=== PATIENT | male | born 1955 | race Asian ===

== ENCOUNTER 2023-11-16 12:03 | Inpatient (IN) | payer BC, MEDICARE, SELFPAY ==
[2023-11-16] VITALS (14 sets, daily range): BP systolic 87–149; BP diastolic 82–97; BMI 24.4; BMI 23.0
--- NOTE | 2023-11-16 08:26 | ED.GENMED ---
History of Present Illness
General
Chief Complaint: Breathing Problem
Source: patient
Exam Limitations: none
Time Seen by Provider: 11/16/23 08:14
History of Present Illness
History of Present Illness:
See MDM
Past History
Past History
ED Past Medical History: Hypercholesterolemia and NIDDM
ED Past Surgical History: Orthopedic
Social History
Tobacco: Former smoker
Alcohol: Occasional
Drug: None
Personal:
Living: with family
Family History
Family History: Other (Mother with liver cancer. Father with Alzheimer's)
Phy Exam
Physical Exam
Physical Exam:
See MDM
Scores
Heart Failure Risk
Heart Failure Risk Score: Yes
History of Stroke or TIA: No
History of intubation for respiratory distress: No
Heart rate on ED arrival >/= 110: No
SaO2 <90% on arrival on room air: No
HR >/=110 during 3min walk test (or too ill to perform test): No
ECG has acute ischemic changes: No
Urea >/=12mmol/L (BUN 33.6mg/dL): No
Serum CO2>/=35mmol/L: No
Troponin I or T elevated to CT Level (0.4mg/dL): No
NT-proBNP >/=5,000ng/L (5,000pg/ml): No
HF Risk Score: 0
Admission Status: LOW RISK 2.8% Consider discharge to home with f/u visit to PCP/[facility]
Course
Orders/Labs/Results
Orders:
Orders
11/16/23 07:21
Electrocardiogram (*1) Urgent
Reason for Study: Palpitations
EKG- Treatment ONCE
11/16/23 08:25
CR Chest - 2 Views Urgent
Comment:
Reason For Exam: SOB
11/16/23 08:53
Basic Metabolic Panel Urgent
Complete Blood Count/With Diff Urgent
NT-proBNP Urgent
PTT Urgent
Prothrombin Time Urgent
Troponin I Urgent
11/16/23 09:08
Potassium Urgent
Abnormal Lab Results
11/16/23
08:53
Absolute Lymphs (auto) 0.7 L 10^3/uL
(1.2-3.4)
Neutrophils % 76.7 H %
(42.2-75.2)
Lymphocytes % 11.0 L %
(20.5-51.1)
Creatinine 0.6 L mg/dL
(0.7-1.3)
Glucose 129 H mg/dl
(70-99)
11/16/23 08:53
Vital Signs
Initial and Last Documented VS:
Initial Vital Signs
Temp Pulse Resp BP Pulse Ox
98.7 F 99 18 149/97 94
11/16/23 07:19 11/16/23 07:19 11/16/23 07:19 11/16/23 07:19 11/16/23 07:19
Last Documented Vital Signs
Temp Pulse Resp BP Pulse Ox
98.7 F 92 18 137/89 96
11/16/23 07:19 11/16/23 09:00 11/16/23 09:00 11/16/23 08:44 11/16/23 09:00
MDM/Problems Addressed
Differential Diagnosis Includes:
HPI and MDM Narrative:
68-year-old male presenting with several days of shortness of breath. He has described exercise intolerance over the past few days. He describes his shortness of breath in regards to nonproductive cough and unable to get deep breaths. Symptoms do
appear to be worse at nighttime when he lays flat. He denies leg swelling. He denies chest pain. Patient states that he followed up with cardiology and was told to go to the hospital.
On exam, patient does have decreased breath sounds on the right. Given his history, will obtain troponin to rule out NSTEMI. Will obtain chest x-ray to look for evidence of right-sided pleural effusion and will obtain BNP with concerns for
pulmonary edema versus heart failure.
Physical exam
General: Well appearing and non-toxic
HEENT: protecting airway
Neck: appears supple
CV: No evidence of cyanosis. Regular rate and rhythm
Resp: No accessory muscle use. Decreased breath sounds to the right
Abd: Non-distended
Extremities: No deformities. No leg edema or tenderness
Neuro: alert
Psych: Normal affect
Skin: Intact
Problems Addressed including Acute and Chronic Conditions affecting care:
1. Shortness of breath
Acuity: acute
Prognosis: stable
Details: Given his history, concern for pleural effusion versus NSTEMI versus pulm edema. Will obtain troponin, BNP and chest x-ray
Updates
Chest x-ray shows complete opacification of right lung field. Troponin and BNP negative. Given that he is not in any extremis and does not require any supplemental oxygen, will refrain from Lasix at the moment. Patient will likely need
thoracentesis for possible neoplasm workup
Differential Diagnosis (but not limited to): Pneumonia, pleural effusion, NSTEMI, congestive heart failure
Testing considered: D-dimer
Drug therapy (if applicable): OTC meds, please see d/c instruction regarding Rx drugs
Amount and/or Complexity of Data Reviewed
Clinical info obtained from: Patient
External data reviewed: N/A
Labs I independently reviewed (but not limited to): Troponin and BNP negative
Radiology: X-ray independently reviewed: Chest x-ray shows complete opacification of right lung field
Pulse Ox: not hypoxic
EKG independently reviewed: Sinus rhythm, left axis, no STEMI
Utility Worker Production: Sinus rhythm
Critical Care: N/A
Risk of Complication:
Social Determinants of health: Good social support
Discussed with other providers: Hospitalist
Escalation of Care includes Admit/Obs: Given the complete opacification of the right lung field, will admit for further workup
Occasional wrong word or 'sound a like' substitutions may have occurred due to the inherent limitations of voice recognition software. Read the chart carefully and recognize, using context, where substitutions have occurred.
*Critical Care Note
Total Time (30-74mins, 75-104mins- exclusive of procedures): Not Applicable
ED Attending Note
-
Portions of this chart may have been created with voice recognition software.� Occasional wrong word or��sound alike� substitutions may have occurred due to the inherent limitations of voice recognition software.
Discharge Plan
Departure
Patient Disposition: Admit
Date of Disposition: 11/16/23
Time of Disposition: 09:32
Admit to: Med/Surg
Presentation/result/management discussed w/ accepting MD/DO: Hospitalist
Discharge Problem:
VILA (dyspnea on exertion), Pleural effusion
Prescriptions:
No Action
metformin 500 MG tablet
1,000 mg PO DAILY
atorvastatin 20 MG tablet
20 mg PO DAILY
oxycodone 5 MG tablet
5 mg PO Q6HPRN PRN (Reason: severe pain) Qty: 12 0RF
ibuprofen 600 MG tablet
600 mg PO Q6HPRN PRN (Reason: pain) Qty: 20 0RF
Referrals:
Indy Holley MD [Family Provider] -
Interventions
Interventions:
*Risk Screen - Suicide Last Done: 11/16/23 09:02
*General Assessment Last Done: 11/16/23 09:02
*Neglect/Abuse Screening Last Done: 11/16/23 09:02
ED- Fall Risk Assessment Last Done: 11/16/23 09:02
*ED COVID-19 Vaccine History Last Done: 11/16/23 09:02
ED- Cardiac Assessment Last Done: 11/16/23 09:02
ED- Pulmonary Assessment Last Done: 11/16/23 09:02
Discharge Date and Time
Print Language: KYRGYZ
[2023-11-16 09:01] LABS: % Basophils 0.8 % (0-2); % Eosinophils 2.2 % (0-6); % Immature Granulocytes 0.3 % (0-0.5); % Neutrophils 76.7 % (42.2-75.2); Absolute Basophils 0.1 10^3/uL (0-0.2); Absolute Eosinophils 0.1 10^3/uL (0-0.7); Absolute Lymphocytes 0.7 10^3/uL (1.2-3.4); Absolute Monocytes 0.6 10^3/uL (0.1-0.6); Absolute Neutrophils 4.9 10^3/uL (1.4-6.5); Hematocrit 41.2 % (39.0-52.0); Hemoglobin 14.7 g/dL (13.0-18.0); Mean Corp Hgb Conc. 35.7 g/dL (33.0-37.0); Mean Corpuscular Hgb 30.9 pg (27.0-31.0); Mean Corpuscular Volume 86.7 fL (80.0-94.0); Nucleated Red Blood Cells % 0 % (-); Platelet Count 234 10^3/uL (130-400); Red Blood Cell Count 4.75 10^6/uL (4.70-6.10); White Blood Cell Count 6.3 10^3/uL (4.8-10.8)
[2023-11-16 09:17] LABS: PT 13.2 Sec (11.4-14.6)
[2023-11-16 09:20] LABS: APTT 30.7 Sec (23.4-35.0)
[2023-11-16 09:21] LABS: Blood Urea Nitrogen 13 mg/dl (9-20); Calcium 9.7 mg/dl (8.4-10.2); Carbon Dioxide 26 mmol/L (22-30); Chloride 102 mmol/L (98-107); Estimated Creatinine Clearance 117 ml/min; Glucose 129 mg/dl (70-99); Sodium 137 mmol/L (135-145); eGFR > 60.00
[2023-11-16 09:26] LABS: NT-proBNP < 20.0 pg/ml; Troponin I < 0.012 ng/ml
[2023-11-16 10:25] LABS: Potassium 4.1 mmol/L (3.5-5.1)
--- NOTE | 2023-11-16 13:31 | W.PN.UPDATE ---
Update Note
Progress Note Update
I personally performed a history and physical exam of the patient and discussed management with the resident. I reviewed the resident's note and agree with the documented findings and plan of care HPI/CC.
68-year-old gentleman who was in his usual state of health started noticed shortness of breath in the last 2 months. Prior to that he was swimming and playing volleyball. He was very active. He has a hyperlipidemia and diabetes mellitus on
metformin.
The shortness of breath or progressive and he was starting to feel short of breath with minimal exertion. No chest pain per se. He was having occasional bouts of dry cough. No fever or chills.
No lower extremity edema.
He has noticed loss of appetite and some weight loss. He states 5 pounds within the last 2 months. No lumps or bumps anywhere. He is up-to-date with colonoscopy. Ex-smoker quit 30 years ago. Mom of liver cancer.
He also had episode of syncope 10 days ago post coughing. He had another presyncopal episode when he was standing at the sink and having a coughing spell the other day. He denies any cardiac disease. Denies any palpitations. Both episodes
happened with the coughing raising suspicion for cough syncope.
Evaluation here reveals complete whiteout of the right lung suspected pleural effusion. No mediastinal shift noted. Not hypoxic.
Labs are unremarkable. EKG sinus rhythm with no acute ST-T changes.
Significant severe right pleural effusion of unclear etiology-admit for evaluation. Consult IR for [employer] [facility] diagnostic and therapeutic. Consult pulmonary. Will obtain a chest CT post thoracentesis ; there is a concern raised about nodules
in the left lung.
suspect syncope may be cough syncope. Follow telemetry.
[2023-11-16 14:06] LABS: Body Fluid pH 7.39
--- NOTE | 2023-11-16 14:17 | HPS.HSE ---
Family Physician
-
Family Physician: Indy Holley
Chief Complaint
-
Shortness of breath
History of Present Illness
Patient is a 68-year-old male who presented to the ED with shortness of breath starting about 2 months ago. He has a very active lifestyle, plays volleyball and swims routinely and has noticed decreased tolerance of exercise within the past 2
months. Patient notes nonproductive cough, loss of appetite and weight loss (~5 pounds in 2 months). No chest pain, fever, night sweats, nausea vomiting, leg swelling, recent travels. Has had 1 episode of syncope about 10 days ago after severe
coughing and a presyncopal episode in the kitchen few days ago after coughing, both without falling. Last colonoscopy was done 4 years ago.
Medical History
Past Medical History
Past Medical History: Reports Hypercholesterolemia and Other
Additional Past Medical History:
NIDDM, renal cyst (8 years ago)
Past Surgical History: Reports Orthopedic
Social History
Tobacco: Former Smoker ([id number] (quit 30 years ago))
Alcohol: Occasional
Personal:
Living: With Family
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
Family History
Family History: Other (Liver cancer in mother, dementia in father)
Allergies / Home Medications
Allergies reflects when Allergies were last updated in [facility].
Home Medications with original date entered in [facility]
Allergy/Medication List:
Allergies
Allergy/AdvReac Type Severity Reaction Status Date / Time
No Known Allergies Allergy Verified 11/16/23 07:18
Home Medications
atorvastatin 20 mg tablet 20 mg PO DAILY 07/05/21
ferrous sulfate 325 mg (65 mg iron) tablet 325 mg PO DAILY 11/16/23
loperamide 2 mg capsule (Imodium A-D) 2 mg PO Q6HPRN PRN diarrhea 11/16/23
metformin 1,000 mg tablet 1,000 mg PO BID 11/16/23
therapeutic multivitamin 1 tab PO DAILY 11/16/23
Review of Systems
-
History Source: Patient
Constitutional: Reports Weight Loss (About 5 pounds within the last 2 months)
EENT: Reports No Symptoms
Respiratory: Reports Cough (Nonproductive), Trouble Breathing and Other (Shortness of breath on exertion and when lying flat)
Cardiac: Reports No Symptoms
Abdomen/GI: Reports Other (Loss of appetite)
: Reports No Symptoms
Musculoskeletal: Reports No Symptoms
Skin: Reports No Symptoms
Neurological: Reports No Symptoms
Endocrine: Reports No Symptoms
Hematologic/Lymphatic: Reports No Symptoms
Psych: Reports Calm
Physical Exam
Vital Signs
Vital Signs
Temp Pulse Resp BP Pulse Ox
98.8 F 87 18 120/90 99
11/16/23 12:50 11/16/23 13:25 11/16/23 13:25 11/16/23 13:25 11/16/23 13:25
Physical Exam
General: Well Developed, Well Nourished and No Apparent Distress
Respiratory: Decreased Breath Sounds (On the right side, left side normal)
Cardiac: S1/S2 and Regular Rhythm
GI: Soft, Non Tender, Non Distended and Normal Bowel Sounds
Musculoskeletal: No Clubbing and No Edema
Neuro: Awake, Alert and Oriented
Hematologic/Lymphatic: No Lymphadenopathy
Psych: Calm
Laboratory Results
-
11/16/23 08:53
Laboratory Results
PT 13.2 Sec (11.4-14.6) 11/16/23 08:53
INR 1.00 11/16/23 08:53
APTT 30.7 Sec (23.4-35.0) 11/16/23 08:53
Total Bilirubin Cancelled 11/16/23 08:53
AST Cancelled 11/16/23 08:53
ALT Cancelled 11/16/23 08:53
Alkaline Phosphatase Cancelled 11/16/23 08:53
Troponin I < 0.012 ng/ml 11/16/23 08:53
Impression/Plan
-
IMPRESSION: Patient is a 68-year-old male who presented to the ED with shortness of breath and right-sided pleural effusion on chest x-ray.
PLAN:
Right-sided pleural effusion
-Etiology unclear, no mediastinal shift
-IR consult -- thoracentesis analysis
-Pulmonary consult appreciated
-Repeat chest x-ray after thoracentesis
Syncope
-Possibly noncardiac due to post cough episode
NIDDM
-Continue metformin
Hyperlipidemia
-Continue atorvastatin
Full code
DVT prophylaxis Lovenox
[2023-11-16 14:19] LABS: Body Fluid LDH 342 U/L; Body Fluid Protein 5.5 g/dl
[2023-11-16 14:21] LABS: Body Fluid Triglycerides < 30 mg/dl
[2023-11-16 14:41] LABS: Body Fluid WBC 563 /CUMM
[2023-11-16 14:50] LABS: Body Fluid Second Tech AMA
[2023-11-16 16:33] LABS: Glucose - Point of Care 188 mg/dl (70-99)
--- NOTE | 2023-11-16 16:52 | PTCARENOTE ---
Received pt from ER.Pt awake, alert and oriented x3. Pt c/o right sided chest pain, tolerable at this time. Unchanged pt rates 05/21, md aware Pt NSR-ST on tele. Pt VSS 95% on RA. Pt has bandaid to right back, CDI, no bleeding or hematoma noted. Pt
oriented to room,call [place] within reach, plan of care continues
[2023-11-16] MEDS: LOVENOX 40 MG SC (17:02)
[2023-11-16] MEDS: NOVOLOG FLEXPEN-LOW RESISTANCE 1 UNITS SC (17:03)
--- NOTE | 2023-11-16 17:25 | CON.PUL ---
Consultation
Consultation Request
Date/Time Consultation Requested: 11/15
Date/Time Consultation Performed: 11/15
Reason for Consultation: Abnormal chest x-ray
Medical History
-
History of Present Illness:
History obtained from the patient and reviewing records. Patient is a 68-year-old male who describes increased cough and vague right chest discomfort over the past 2 months. He was recommended to get a chest x-ray from his primary but failed to do
so, instead waiting for pulmonary evaluation. He had an appointment with us in the next few weeks. He presents to the ED with worsening symptoms over the past few days. Throughout this he denies any hemoptysis, obvious fevers, sweats, chills. He
has lost about 7 pounds over the past few weeks. He also describes episode of syncope related to his cough. Upon arrival to the [facility], he was afebrile, pulse 99, breathing at 18, blood pressure 149/97, 94%. Chest x-ray showed
complete whiteout of the right lung. We are asked to comment on his pulmonary process. He underwent thoracentesis in the ED, 2 L drained. He feels mildly improved. He is nontoxic in appearance.
.
PMH: Admits to some liver history, hepatitis but details are unclear. He has hypercholesterolemia, diabetes. He specifically denies history of tuberculosis, pneumonia. He had a colonoscopy 4 years ago, unremarkable
Past Medical History
Past Medical History: None (See above)
Past Surgical History: None (See above)
Social History
Tobacco: Former Smoker (Quit , less than [id number])
Alcohol: Daily (2 beers a day)
Drug: None
Personal:
Living: With Family
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
Environmental Exposures: Born in [place], [place] the states [place]
Family History
Family History: Other (Mother with liver cancer, father with Alzheimer's. Siblings healthy. Children healthy. Family history negative for lung cancer)
Allergies / Home Medications
Allergies
Allergy/AdvReac Type Severity Reaction Status Date / Time
No Known Allergies Allergy Verified 11/16/23 07:18
Home Medications
�Medication �Instructions �Recorded �Confirmed �Last Taken �Type
atorvastatin 20 mg tablet 20 mg PO DAILY 07/05/21 11/16/23 11/16/23 History
ferrous sulfate 325 mg (65 mg 325 mg PO DAILY 11/16/23 11/16/23 11/16/23 History
iron) tablet
loperamide 2 mg capsule (Imodium 2 mg PO Q6HPRN PRN diarrhea 11/16/23 11/16/23 Unknown History
A-D)
metformin 1,000 mg tablet 1,000 mg PO BID 11/16/23 11/16/23 11/16/23 History
therapeutic multivitamin 1 tab PO DAILY 11/16/23 11/16/23 11/16/23 History
Review of Systems
-
All other systems: Negative unless noted
Vitals / Labs / Diagnostic Testing
Vital Signs
Temp Pulse Resp BP Pulse Ox
98 F 91 18 149/96 95
11/16/23 15:41 11/16/23 15:41 11/16/23 15:41 11/16/23 15:41 11/16/23 15:41
Lab Data
11/16/23 08:53
Laboratory Results
11/16/23
08:53
PT 13.2
INR 1.00
APTT 30.7
Diagnostic Testing:
Physical Exam
-
HEENT: Normocephalic and Anicteric
Cardiovascular: S1/S2, Regular Rhythm, Murmur (n), Rub (n), Peripheral Edema (n) and Calf Tenderness (n)
Respiratory: Wheeze (n), Rales (n), Rhonchi (n), Non-Labored Respirations and Other (Decreased breath sounds right side, dullness to percussion fci up, no egophony)
GI: Soft, Non Distended and Non Tender
Neurology: Awake, Alert and No Motor Deficits (Able to sit up without assistance)
Skin: Good Color and Other (No clubbing, cyanosis)
General: Comfortable
Assessment
-
68-year-old male with 2-month history of cough, progressive shortness of breath, cough syncope, was recommended to obtain chest x-ray per primary, presents to the ED with progressive symptoms found to have complete whiteout of right lung, with
tracheal shift. We are asked to comment on pulmonary process
Large right pleural effusion
Status post thoracentesis 2 L 11/15
Slight improvement in tracheal shift, persistent large pleural effusion
Mild interstitial findings left lung, my review
Cough, shortness of breath x 2 months
Progressive
10 pound weight loss
History of renal cysts
Moderate right hydronephrosis with nephrolithiasis per abdominal imaging 2021
Conditions present prior to admission
Distant tobacco history
Less than [id number], quit
History of schwannoma
Left foot biopsy 2019
Questionable history of hepatitis
Family history of liver cancer?
History of diabetes
Hyperlipidemia
Plan/recommendations
At this time, patient appears to be nontoxic
Minimal improvement postthoracentesis on chest x-ray but there does appear to be some less tracheal shift per my review
There may also be some mild interstitial process in the left side on his admission film
Abdominal images from 2021 without pulmonary parenchymal process
Moving forward
Will likely require repeat thoracentesis and chest tube placement 11/16 given minimal improvement
Following chest tube placement, will require CT chest. May be worth doing abdominal and CT imaging at the same time but hold until chest tube is placed
May be component of trapped lung physiology
Pleural fluid consistent with exudate, cytology pending
Distant history of renal cysts noted. Patient states they were complex. Right hydronephrosis in 2021 noted
Unclear of follow-up or intervention at that time
Check UA
Patient had colonoscopy 4 years ago
Distant tobacco history noted
Reviewed with patient possibility of underlying malignancy
Reviewed with primary service, interventional radiology
Will follow
[2023-11-16 20:01] LABS: LDH 145 U/L (120-246); Total Protein 6.4 g/dl (6.3-8.2)
[2023-11-16 20:25] LABS: ALT (SGPT) 30 U/L (0-50); AST (SGOT) 43 U/L (17-59); Albumin 3.9 g/dl (3.5-5.0); Alkaline Phosphatase 91 U/L (38-126); Blood Urea Nitrogen 16 mg/dl (9-20); Calcium 9.2 mg/dl (8.4-10.2); Carbon Dioxide 26 mmol/L (22-30); Chloride 101 mmol/L (98-107); Estimated Creatinine Clearance 88 ml/min; Glucose 247 mg/dl (70-99); Potassium 4.2 mmol/L (3.5-5.1); Sodium 133 mmol/L (135-145); Total Bilirubin 0.7 mg/dl (0.2-1.3); Total Protein 6.6 g/dl (6.3-8.2); eGFR > 60.00
[2023-11-16 21:07] LABS: Glucose - Point of Care 162 mg/dl (70-99)
[2023-11-17] VITALS (20 sets, daily range): BP systolic 82–136; BP diastolic 73–104; PULSE 82; O2SAT 93–95
[2023-11-17 07:21] LABS: Glucose - Point of Care 137 mg/dl (70-99)
[2023-11-17 07:28] LABS: % Basophils 0.6 % (0-2); % Eosinophils 1.8 % (0-6); % Immature Granulocytes 0.4 % (0-0.5); % Lymphocytes 20.3 % (20.5-51.1); % Monocytes 12.4 % (1.7-9.3); % Neutrophils 64.5 % (42.2-75.2); Absolute Eosinophils 0.1 10^3/uL (0-0.7); Absolute Monocytes 0.6 10^3/uL (0.1-0.6); Absolute Neutrophils 3.3 10^3/uL (1.4-6.5); Hematocrit 40.1 % (39.0-52.0); Hemoglobin 14.2 g/dL (13.0-18.0); Mean Corp Hgb Conc. 35.4 g/dL (33.0-37.0); Mean Corpuscular Hgb 31.2 pg (27.0-31.0); Mean Corpuscular Volume 88.1 fL (80.0-94.0); Mean Platelet Volume 9.1 fL (7.4-10.4); Nucleated Red Blood Cells % 0 % (-); Platelet Count 232 10^3/uL (130-400); Red Blood Cell Count 4.55 10^6/uL (4.70-6.10); White Blood Cell Count 5.1 10^3/uL (4.8-10.8)
[2023-11-17 08:09] LABS: Blood Urea Nitrogen 12 mg/dl (9-20); Calcium 8.6 mg/dl (8.4-10.2); Carbon Dioxide 28 mmol/L (22-30); Chloride 103 mmol/L (98-107); Estimated Creatinine Clearance 100 ml/min; Glucose 129 mg/dl (70-99); Potassium 3.8 mmol/L (3.5-5.1); Sodium 135 mmol/L (135-145); eGFR > 60.00
[2023-11-17 08:30] LABS: Glycohemoglobin (HgbA1c) 7.1 % (4.0-5.6)
--- NOTE | 2023-11-17 08:49 | W.PN.PUL3 ---
Today's Communication / Plan
-
Chest tube later today
Check UA, rule out microscopic hematuria
Eventual CT chest and abdomen imaging with contrast in the next 24 to 48 hours
Assessment
-
68-year-old male with 2-month history of cough, progressive shortness of breath, cough syncope, was recommended to obtain chest x-ray per primary, presents to the ED with progressive symptoms found to have complete whiteout of right lung, with
tracheal shift. We are asked to comment on pulmonary process
Large right pleural effusion
Status post thoracentesis 2 L 11/15
Slight improvement in tracheal shift, persistent large pleural effusion
Mild interstitial findings left lung, my review
Cough, shortness of breath x 2 months
Progressive
10 pound weight loss
History of renal cysts
Moderate right hydronephrosis with nephrolithiasis per abdominal imaging 2021
Conditions present prior to admission
Distant tobacco history
Less than [id number], quit
History of schwannoma
Left foot biopsy 2019
Questionable history of hepatitis
Family history of liver cancer?
History of diabetes
Hyperlipidemia
Plan/recommendations
At this time, patient appears to be nontoxic
Minimal improvement postthoracentesis on chest x-ray but there does appear to be some less tracheal shift per my review
There may also be some mild interstitial process in the left side on his admission film
Abdominal images from 2021 without pulmonary parenchymal process
Moving forward
Plan for chest tube later today
Reviewed with patient likelihood of underlying malignancy
There does appear to be some left-sided interstitial process, suspected scattered nodules
Pleural fluid consistent with exudate, cytology pending
Distant history of renal cysts noted. Patient states they were complex. Right hydronephrosis in 2021 noted
Unclear of follow-up or intervention at that time
Check UA
Patient had colonoscopy 4 years ago
Distant tobacco history noted
Reviewed with patient possibility of underlying malignancy
Reviewed with primary service, interventional radiology
Will follow
Subjective Data
-
Date of Service:
Date of Service: November 17, 2023
Subjective:
Patient is feeling improved this morning. Less cough, less short of breath, less chest discomfort. Sitting in chair, appears to be in good spirits. Denies hemoptysis
Objective Data
Data Reviewed
Vital Signs / I&O / Oxygen:
Vital Signs
Temp Pulse Resp BP Pulse Ox
98 F 82 16 123/84 98
11/17/23 07:25 11/17/23 07:25 11/17/23 07:25 11/17/23 07:25 11/17/23 07:25
Intake and Output
11/16/23 11/17/23 11/18/23
06:59 06:59 06:59
Intake Total 480 / 480
Balance 480 / 480
SaO2 98
Physical Exam
General: Comfortable
HEENT: Normocephalic and Anicteric
Cardiovascular: S1-S2, Regular Rhythm, Murmur (n), Rub (n), Peripheral Edema (n) and Calf Tenderness (n)
Respiratory: Wheeze (n), Crackles (n), Rhonchi (n), Non-Labored Respirations and Other (Decreased breath sounds right side, dullness to percussion)
GI: Soft, Non Distended and Non Tender
Neurology: Awake, Alert and No Motor Deficits
Skin: Cyanosis (n), Jaundice (n) and Rash (n)
Labs/Micro/Reports
Lab Data
11/17/23 06:27
11/17/23 06:27
Laboratory Results
11/16/23
08:53
PT 13.2
INR 1.00
APTT 30.7
[2023-11-17] MEDS: NOVOLOG FLEXPEN-LOW RESISTANCE SC ×2 (08:54→11:59)
[2023-11-17] MEDS: LIPITOR 20 MG PO (08:54)
[2023-11-17] MEDS: FEOSOL 325 MG PO (08:54)
[2023-11-17] MEDS: THERAGRAN 1 TABLET PO (08:54)
[2023-11-17] MEDS: GLUCOPHAGE 1000 MG PO ×2 (08:56→16:35)
--- NOTE | 2023-11-17 09:00 | W.PN.HOSP.TC ---
Today's Communication/Plan
-
Awaiting IR consult for chest tube placement
Chest and abdomen CT scan after chest tube placement
Fluid cytology pending
Assessment / Plan
Assessment / Plan
Impression:68-year-old male with history of NIDDM with white out of the right lung status post thoracentesis. Patient feels less pressure on the right side of his chest. No syncope episode since yesterday.
Plan:
Right-sided pleural effusion
Fluid analysis - exudative, cytology pending
Pulmonary consult - chest tube placement, chest and abdomen CT scan after chest tube
Syncope
Possibly noncardiac due to post cough episodes, no episodes in hospital
NIDDM
Continue insulin
Hyperlipidemia
Continue statin
Full code
DVT prophylaxis Lovenox
Anticipated Discharge: 24 - 48 hours
Subjective/Interval History
-
Date of Service: November 17, 2023
Objective Data
-
Labs:
Laboratory Results
11/17/23
06:27
WBC 5.1
Hgb 14.2
Hct 40.1
Plt Count 232
Sodium 135
Potassium 3.8
Chloride 103
Carbon Dioxide 28
BUN 12
Creatinine 0.7
Glucose 129 H
Calcium 8.6
Vital Signs:
Vital Signs
Temp Pulse Resp BP Pulse Ox
98 F 82 16 123/84 98
11/17/23 07:25 11/17/23 07:25 11/17/23 07:25 11/17/23 07:25 11/17/23 07:25
I&O
11/16/23 11/17/23 11/18/23
06:59 06:59 06:59
Intake Total 480 / 480
Balance 480 / 480
Review of Systems
-
History Source: Patient
Constitutional: Reports Weight Loss and No Appetite (Loss of appetite)
EENT: Reports No Symptoms Reported
Respiratory: Reports Trouble Breathing (on exertion)
Cardiac: Reports No Symptoms
Abdomen/GI: Reports No Symptoms
Genitourinary: Reports No Symptoms
Musculoskeletal: Reports No Symptoms
Skin: Reports No Symptoms
Neuro: Reports No Symptoms
Endocrine: Reports No Symptoms
Hematologic / Lymphatic: Reports No Symptoms
Allergy / Immunology: Reports No Symptoms
Physical Exam
-
General: Well Developed and Well Nourished
Respiratory: Decreased Breath Sounds (On right side)
Cardiac: Regular Rhythm and S1/S2
GI: Soft, Nontender and Nondistended
Musculoskeletal: No Clubbing, No Cyanosis and No Edema
Neuro: Awake, Alert and Oriented
Hematologic / Lymphatic: No Lymphadenopathy
Psych: Calm
[2023-11-17 11:25] LABS: Glucose - Point of Care 172 mg/dl (70-99)
--- NOTE | 2023-11-17 14:37 | PTCARENOTE ---
Pt returned from IR s/p R lateral CT placement. -20cm wall suction applied as ordered. No air leak, no tidaling, no crepitus. VSS. 95% on RA. LS diminished throughout right side. Pt c/p slight R sided pleuritic pain, denies need for pain meds at
this time. Will continue to monitor.
--- NOTE | 2023-11-17 15:20 | CM ---
Alert awake oriented patient who lives with his Marilou who lives in a 2 story home with 2 step to enter and 14 steps to bed and bathroom. He is independent in driving and in all activities of daily living.He has oxygen at home that he bought and
uses prn.He had chest tube placed today.Offered VN he said he did not need.
No VN hx / No SNF history
Pharmacy [facility] [place]
PCP DR Indy Holley
PLAN Home no anticiapted needs
--- NOTE | 2023-11-17 15:34 | W.PN.UPDATE ---
Update Note
Progress Note Update
Seen and examined by me independently in collaboration with the medical insurance collector Esperanza.
Lab data and imaging data reviewed.
Addendum as below :
Right large exudative pleural effusion with a large residual pleural effusion after 2 L of thoracentesis. Unclear etiology. Will be getting a chest tube for adequate drainage. No evidence of empyema. Appreciate pulmonary input.Culture data
negative so far.
Once chest tube is in well catheter chest CT imaging to evaluate further for etiology.
[2023-11-17] MEDS: TYLENOL 650 MG PO (16:35)
[2023-11-17 16:51] LABS: Glucose - Point of Care 177 mg/dl (70-99)
[2023-11-17] MEDS: NOVOLOG FLEXPEN-LOW RESISTANCE 1 UNITS SC (17:00)
[2023-11-17 17:12] LABS: Urine Albumin Negative (Neg - Trace); Urine Bilirubin Negative (Negative); Urine Character Clear (Clear); Urine Color Yellow; Urine Glucose Negative (Negative); Urine Ketone Negative (Negative); Urine Leukocyte Negative (Negative); Urine Nitrite Negative (Negative); Urine Occult Blood Negative (Negative); Urine Urobilinogen Negative (Neg - 1+)
[2023-11-17] MEDS: LOVENOX 40 MG SC (17:25)
[2023-11-17 21:23] LABS: Glucose - Point of Care 171 mg/dl (70-99)
[2023-11-18] VITALS (8 sets, daily range): BP systolic 82–140; BP diastolic 82–101
--- NOTE | 2023-11-18 06:15 | W.PN.UPDATE ---
Update Note
Progress Note Update
Patient noted with Interval development of large right pneumothorax with severe right lung atelectasis status post pleural drainage catheter placement, most in keeping with trapped lung. No tension. IR service aware. Saturations 97%. Had mid CP
earlier but resolved without needing intervention.
--- NOTE | 2023-11-18 06:19 | PTCARENOTE ---
CXR reviewed, [place] RESAW MACHINE OPERATOR notified. Pt stating ' i feel much better than yesterday'. pulse ox 97% 2 L NC, no crepitus noted, tidaling present, pt with minimal bubbling in air leak chamber. Pt stating mild chest discomfort earlier in the night. [place]
RESAW MACHINE OPERATOR aware. Pt in for CT chest this AM, continuous pulse ox placed.
[2023-11-18 07:32] LABS: Glucose - Point of Care 134 mg/dl (70-99)
[2023-11-18] MEDS: NOVOLOG FLEXPEN-LOW RESISTANCE SC ×2 (07:35→11:54)
[2023-11-18] MEDS: OMNIPAQUE 50 ML PO (07:56)
[2023-11-18 08:15] LABS: % Basophils 0.3 % (0-2); % Eosinophils 1.1 % (0-6); % Immature Granulocytes 0.3 % (0-0.5); % Lymphocytes 15.1 % (20.5-51.1); % Monocytes 10.1 % (1.7-9.3); % Neutrophils 73.1 % (42.2-75.2); Absolute Eosinophils 0.1 10^3/uL (0-0.7); Absolute Monocytes 0.7 10^3/uL (0.1-0.6); Absolute Neutrophils 4.9 10^3/uL (1.4-6.5); Hematocrit 41.3 % (39.0-52.0); Hemoglobin 14.5 g/dL (13.0-18.0); Mean Corp Hgb Conc. 35.1 g/dL (33.0-37.0); Mean Corpuscular Hgb 31.1 pg (27.0-31.0); Mean Corpuscular Volume 88.6 fL (80.0-94.0); Mean Platelet Volume 9.1 fL (7.4-10.4); Nucleated Red Blood Cells % 0 % (-); Platelet Count 241 10^3/uL (130-400); Red Blood Cell Count 4.66 10^6/uL (4.70-6.10); Red Cell Dist. Width 11.9 % (11.5-14.5); White Blood Cell Count 6.6 10^3/uL (4.8-10.8)
[2023-11-18] MEDS: GLUCOPHAGE PO (08:23)
--- NOTE | 2023-11-18 08:30 | W.PN.UPDATE ---
Update Note
Progress Note Update
Seen and examined by me independently in collaboration with the medical representative.
Lab data and imaging data reviewed.
Addendum as below :
Last night around 10:00 pm in the paroxysms of cough and then developed severe right-sided chest pain 6 out of 10. He sat forward and that sort of subsided. He still has slight discomfort in the right chest 2/10. Denies any shortness of breath at
rest.
No lightheadedness or dizziness. No nausea vomiting.
Looks comfortable. No respiratory distress noted. Oxygenating okay at 2 L.
Chest decreased breath sounds on the right side.
Chest x-ray from this morning shows Interval development of large right pneumothorax with severe right lung atelectasis status post pleural drainage catheter placement, most in keeping with trapped lung. No tension. No significant pleural effusion
noted
Chest output 950 mL since yesterday. Slight intermittent air leak noted.
Suspect trapped lung phenomenon but will consult interventional radiology to make sure no kinks in the tubing or need repositioning of the tubing.
Discussed with Dr. Kimball this morning who is going to take him down to reposition the chest x-ray. Pulmonary notified.
CW suction of CT.
DW at bedside.
Await CT imaging chest/abdo/pelvis this morning.
Total time spent on today's encounter was 52 minutes which included time spent in counseling the patient/family regarding diagnosis and treatment plan as listed above, goals of care, and symptom management. Case was discussed with nursing staff,
specialists . All labs and imaging personally reviewed by me. Remainder the time spent in detailed review of previous records, lab data, imaging, and other medical provider documentation.
[2023-11-18 08:56] LABS: Blood Urea Nitrogen 13 mg/dl (9-20); Calcium 8.8 mg/dl (8.4-10.2); Carbon Dioxide 29 mmol/L (22-30); Chloride 101 mmol/L (98-107); Estimated Creatinine Clearance 100 ml/min; Glucose 130 mg/dl (70-99); Potassium 3.6 mmol/L (3.5-5.1); Sodium 135 mmol/L (135-145); eGFR > 60.00
--- NOTE | 2023-11-18 09:09 | W.PN.HOSP.TC ---
Today's Communication/Plan
-
IR consult for chest tube repositioning
Chest abdomen pelvis CT scan scheduled today
Awaiting fluid culture, Gram stain results
Assessment / Plan
Assessment / Plan
Impression:68-year-old male with history of NIDDM with white out of the right lung status post thoracentesis and chest tube placement. Patient had chest pain last night which was relieved after a few minutes. Chest x-ray showed interval development
of large right-sided pneumothorax with severe right lung atelectasis. No syncope episode, lightheadedness, nausea, chest pain since last night. Patient is hemodynamically stable.
Plan:
Right-sided pneumothorax
Post chest tube placement
Consult IR appreciated -chest tube repositioning
Right-sided pleural effusion
Fluid analysis - exudative, cytology pending
Pulmonary consult - chest tube placed, developed right pneumothorax after procedure, IR consult appreciated for chest tube repositioning
chest abdomen pelvis CT scan scheduled today
Syncope
Possibly noncardiac due to post cough episodes, no episodes in hospital
NIDDM
Continue metformin
Sliding scale insulin
Hyperlipidemia
Continue statin
Full code
DVT prophylaxis Lovenox
Anticipated Discharge: 24 - 48 hours
Subjective/Interval History
-
Date of Service: November 18, 2023
Objective Data
-
Labs:
Laboratory Results
11/18/23
06:30
WBC 6.6
Hgb 14.5
Hct 41.3
Plt Count 241
Sodium 135
Potassium 3.6
Chloride 101
Carbon Dioxide 29
BUN 13
Creatinine 0.7
Glucose 130 H
Calcium 8.8
Vital Signs:
Vital Signs
Temp Pulse Resp BP Pulse Ox
97.9 F 96 18 129/86 98
11/18/23 08:12 11/18/23 08:12 11/18/23 08:12 11/18/23 08:12 11/18/23 08:12
I&O
11/17/23 11/18/23 11/19/23
06:59 06:59 06:59
Intake Total 480 / 480 480 / 480
Output Total 950 / 950 600 / 600
Balance 480 / 480 -470 / -470 -600 / -600
Review of Systems
-
History Source: Patient
Constitutional: Reports Weight Loss and No Appetite (Loss of appetite)
EENT: Reports No Symptoms Reported
Respiratory: Reports Trouble Breathing (on exertion)
Cardiac: Reports No Symptoms
Abdomen/GI: Reports No Symptoms
Genitourinary: Reports No Symptoms
Musculoskeletal: Reports No Symptoms
Skin: Reports No Symptoms
Neuro: Reports No Symptoms
Endocrine: Reports No Symptoms
Hematologic / Lymphatic: Reports No Symptoms
Allergy / Immunology: Reports No Symptoms
Physical Exam
-
General: Well Developed and Well Nourished
Respiratory: Decreased Breath Sounds (On right side)
Cardiac: Regular Rhythm and S1/S2
GI: Soft, Nontender and Nondistended
Musculoskeletal: No Clubbing, No Cyanosis and No Edema
Neuro: Awake, Alert and Oriented
Hematologic / Lymphatic: No Lymphadenopathy
Psych: Calm
[2023-11-18 10:28] LABS: Glucose - Point of Care 149 mg/dl (70-99)
[2023-11-18] MEDS: FEOSOL 325 MG PO (11:16)
[2023-11-18] MEDS: LIPITOR 20 MG PO (11:16)
[2023-11-18] MEDS: THERAGRAN 1 TABLET PO (11:16)
--- NOTE | 2023-11-18 11:53 | PTCARENOTE ---
Pt returned from IR S/P reinsertion of chest tube. Dressing to site CDI, chest tube to -20cm suction per orders. Level 1 air leak with tidaling noted. unchanged from [place], Mds aware. Pt VSS 98% on 2L for comfort. Pt reoriented to room, and
patient update on plan of care, call [place] within reach, plan of care continues.
[2023-11-18] MEDS: MIRALAX 17 GRAMS PO (12:05)
--- NOTE | 2023-11-18 14:42 | W.PN.PUL3 ---
Today's Communication / Plan
-
Continue chest tube to suction
Daily chest x-ray
Plan for bronchoscopy, endobronchial exam Tuesday
Will obtain additional tissue if indicated
Oncology has been consulted
Mechanical and pharmacological DVT prophylaxis
Assessment
-
68-year-old male with 2-month history of cough, progressive shortness of breath, cough syncope, was recommended to obtain chest x-ray per primary, presents to the ED with progressive symptoms found to have complete whiteout of right lung, with
tracheal shift. We are asked to comment on pulmonary process
Stage IV Lung adenocarcinoma
Malignant right pleural effusion
Bony metastases per CT imaging
Large right pleural effusion
Status post thoracentesis 2 L 11/15
Slight improvement in tracheal shift, persistent large pleural effusion
S/P Chest tube, large bore 11/17
Mild interstitial findings left lung, my review
Cough, shortness of breath x 2 months
Progressive
10 pound weight loss
History of renal cysts
Moderate right hydronephrosis with nephrolithiasis per abdominal imaging 2021
Conditions present prior to admission
Distant tobacco history
Less than [id number], quit
History of schwannoma
Left foot biopsy 2019
Questionable history of hepatitis
Family history of liver cancer?
History of diabetes
Hyperlipidemia
Plan/recommendations
At this time, patient appears to be nontoxic
Trapped lung physiology, right lung mass, right perihilar mass
Reviewed CT chest findings
There were also scattered nodular interstitial disease in bilateral lung parenchyma
Bony metastases per imaging
No abdominal findings
Moving forward
Reviewed with patient and at length diagnosis of stage IV lung adenocarcinoma
Oncology has been consulted
Maintain chest tube to suction
Appreciate IR input, upsize of chest tube
Plan for bronchoscopy to assess airway, for endobronchial process given trapped lung physiology
Tentatively for Tuesday at 1:30 PM
Await oncology evaluation
Doubt additional tissue will be required but if so, will pursue during bronchoscopy as indicated
Molecular markers have been sent on pleural fluid
Distant tobacco history noted
Mechanical and prophylactic DVT prophylaxis. Patient would be considered high risk
Reviewed with primary service, pathology, interventional radiology
Subjective Data
-
Date of Service:
Date of Service: November 18, 2023
Subjective:
Patient feels okay. He describes some vague right anterior chest discomfort and cough yesterday late p.m. Observed ambulating in the room without difficulty. Chest tube in place, larger bore tube placed per IR. Patient is complaining of
constipation. Denies abdominal pain, lightheadedness, hemoptysis. at bedside. Reviewed findings of CT chest, and pleural fluid cytology
Objective Data
Data Reviewed
Vital Signs / I&O / Oxygen:
Vital Signs
Temp Pulse Resp BP Pulse Ox
97.8 F 88 20 131/93 98
11/18/23 11:53 11/18/23 11:53 11/18/23 11:53 11/18/23 11:53 11/18/23 11:53
Intake and Output
11/17/23 11/18/23 11/19/23
06:59 06:59 06:59
Intake Total 480 / 480 480 / 480
Output Total 950 / 950 600 / 600
Balance 480 / 480 -470 / -470 -600 / -600
SaO2 98
Nasal Cannula flow liters per 2
minute
Physical Exam
General: Comfortable
HEENT: Normocephalic and Anicteric
Cardiovascular: S1-S2, Regular Rhythm, Murmur (n), Rub (n), Peripheral Edema (n) and Calf Tenderness (n)
Respiratory: Wheeze (n), Crackles (n), Rhonchi (n), Non-Labored Respirations, Chest Tube (Right chest tube, respiratory variation) and Other (Decreased breath sounds right side, no crepitus)
GI: Soft, Non Distended and Non Tender
Neurology: Awake, Alert and No Motor Deficits
Skin: Cyanosis (n), Jaundice (n) and Rash (n)
Labs/Micro/Reports
Lab Data
11/18/23 06:30
11/18/23 06:30
Microbiology
11/16/23 13:29 Pleural Fluid Body Fluid Culture - Preliminary
No Growth After 18-24 Hours
11/16/23 13:29 Pleural Fluid Gram Stain - Preliminary
11/17/23 13:26 Pleural Fluid Body Fluid Culture - Preliminary
No Growth After 18-24 Hours
11/17/23 13:26 Pleural Fluid Gram Stain - Preliminary
[2023-11-18] MEDS: SENOKOT-S 1 TABLET PO (15:31)
[2023-11-18 16:11] LABS: Glucose - Point of Care 231 mg/dl (70-99)
--- NOTE | 2023-11-18 16:39 | CM ---
Continues with chest tube
He has home oxygen . He is from room air to 2 liters .
Not ready for discharge.
PLAN Home no anticipated needs
[2023-11-18] MEDS: NOVOLOG FLEXPEN-LOW RESISTANCE 2 UNITS SC (17:10)
[2023-11-18] MEDS: LOVENOX 40 MG SC (17:10)
[2023-11-18 20:59] LABS: Glucose - Point of Care 215 mg/dl (70-99)
[2023-11-19 03:31] VITALS: BP 126/83
[2023-11-19 07:21] LABS: Glucose - Point of Care 174 mg/dl (70-99)
[2023-11-19 07:30] VITALS: BP 127/85
[2023-11-19] MEDS: THERAGRAN 1 TABLET PO (08:04)
[2023-11-19] MEDS: FEOSOL 325 MG PO (08:04)
[2023-11-19] MEDS: MIRALAX 17 GRAMS PO (08:04)
[2023-11-19] MEDS: LIPITOR 20 MG PO (08:05)
[2023-11-19] MEDS: NOVOLOG FLEXPEN-LOW RESISTANCE 1 UNITS SC ×2 (08:06→12:43)
[2023-11-19 08:18] LABS: % Basophils 0.6 % (0-2); % Eosinophils 1.4 % (0-6); % Immature Granulocytes 0.3 % (0-0.5); % Lymphocytes 16.6 % (20.5-51.1); % Monocytes 9.3 % (1.7-9.3); % Neutrophils 71.8 % (42.2-75.2); Absolute Eosinophils 0.1 10^3/uL (0-0.7); Absolute Lymphocytes 1.2 10^3/uL (1.2-3.4); Absolute Monocytes 0.7 10^3/uL (0.1-0.6); Hematocrit 40.9 % (39.0-52.0); Hemoglobin 14.3 g/dL (13.0-18.0); Mean Corpuscular Hgb 30.4 pg (27.0-31.0); Mean Corpuscular Volume 86.8 fL (80.0-94.0); Mean Platelet Volume 9.4 fL (7.4-10.4); Nucleated Red Blood Cells % 0 % (-); Platelet Count 255 10^3/uL (130-400); Red Blood Cell Count 4.71 10^6/uL (4.70-6.10); Red Cell Dist. Width 11.9 % (11.5-14.5)
[2023-11-19 08:49] LABS: Blood Urea Nitrogen 10 mg/dl (9-20); Calcium 8.7 mg/dl (8.4-10.2); Carbon Dioxide 29 mmol/L (22-30); Chloride 102 mmol/L (98-107); Estimated Creatinine Clearance 100 ml/min; Glucose 136 mg/dl (70-99); Potassium 3.8 mmol/L (3.5-5.1); Sodium 137 mmol/L (135-145); eGFR > 60.00
--- NOTE | 2023-11-19 10:30 | W.PN.HOSP.TC ---
Today's Communication/Plan
-
Chest Xray
Appreciate oncology consult
Bronchoscopy scheduled for Tuesday
Lung cancer markers pending
Assessment / Plan
Assessment / Plan
Impression:68-year-old male with history of NIDDM with white out of the right lung status post thoracentesis and chest tube placement. Chest tube output: 50 cc. No overnight events.
Plan:
Right lung mass
Appreciate oncology consult
Right-sided pneumothorax
Post chest tube placement - likely trapped lung (right upper and middle lobes)
Consult IR appreciated -chest tube repositioning done
Hemodynamically stable
Right-sided pleural effusion
Fluid analysis - exudative, cytology- Positive for malignant cells, metastatic pulmonary adenocarcinoma, lung cancer markers pending
Pulmonary consult -stage IV lung adenocarcinoma, plan for bronchoscopy Tuesday, daily chest x-ray, oncology consult appreciated, DVT prophylaxis
Syncope
Possibly noncardiac due to post cough episodes, no episodes in hospital
NIDDM
Continue metformin
Sliding scale insulin
Hyperlipidemia
Continue statin
Full code
DVT prophylaxis Lovenox
Anticipated Discharge: > 48 hours
Subjective/Interval History
-
Date of Service: November 19, 2023
Objective Data
-
Labs:
Laboratory Results
11/19/23
06:10
WBC 7.0
Hgb 14.3
Hct 40.9
Plt Count 255
Sodium 137
Potassium 3.8
Chloride 102
Carbon Dioxide 29
BUN 10
Creatinine 0.7
Glucose 136 H
Calcium 8.7
Vital Signs:
Vital Signs
Temp Pulse Resp BP Pulse Ox
98.2 F 102 18 127/85 93
11/19/23 07:30 11/19/23 07:30 11/19/23 07:30 11/19/23 07:30 11/19/23 07:30
I&O
11/18/23 11/19/23 11/20/23
06:59 06:59 06:59
Intake Total 480 / 480 120 / 120
Output Total 950 / 950 785 / 785
Balance -470 / -470 -665 / -665
Review of Systems
-
History Source: Patient
Constitutional: Reports Weight Loss and No Appetite (Loss of appetite)
EENT: Reports No Symptoms Reported
Respiratory: Reports Trouble Breathing (on exertion)
Cardiac: Reports No Symptoms
Abdomen/GI: Reports No Symptoms
Genitourinary: Reports No Symptoms
Musculoskeletal: Reports No Symptoms
Skin: Reports No Symptoms
Neuro: Reports No Symptoms
Endocrine: Reports No Symptoms
Hematologic / Lymphatic: Reports No Symptoms
Allergy / Immunology: Reports No Symptoms
Physical Exam
-
General: Well Developed and Well Nourished
Respiratory: Decreased Breath Sounds (On right side)
Cardiac: Regular Rhythm and S1/S2
GI: Soft, Nontender and Nondistended
Musculoskeletal: No Clubbing, No Cyanosis and No Edema
Neuro: Awake, Alert and Oriented
Hematologic / Lymphatic: No Lymphadenopathy
Psych: Calm
[2023-11-19 11:36] VITALS: BP 123/85
[2023-11-19 11:50] LABS: Glucose - Point of Care 164 mg/dl (70-99)
--- NOTE | 2023-11-19 12:28 | W.PN.PUL3 ---
Today's Communication / Plan
-
Daily chest x-ray
Chest tube to suction
Await oncology evaluation.
Bronchoscopy planned for endobronchial exam given trapped lung 11/20
Would like to touch base with oncology as to whether additional tissue is required prior to bronchoscopy
Assessment
-
68-year-old male with 2-month history of cough, progressive shortness of breath, cough syncope, was recommended to obtain chest x-ray per primary, presents to the ED with progressive symptoms found to have complete whiteout of right lung, with
tracheal shift. We are asked to comment on pulmonary process
Stage IV Lung adenocarcinoma
Malignant right pleural effusion
Bony metastases per CT imaging
Large right pleural effusion
Status post thoracentesis 2 L 11/15
Slight improvement in tracheal shift, persistent large pleural effusion
S/P Chest tube, large bore 11/17
Mild interstitial findings left lung, my review
Cough, shortness of breath x 2 months
Progressive
10 pound weight loss
History of renal cysts
Moderate right hydronephrosis with nephrolithiasis per abdominal imaging 2021
Conditions present prior to admission
Distant tobacco history
Less than [id number], quit
History of schwannoma
Left foot biopsy 2019
Questionable history of hepatitis
Family history of liver cancer?
History of diabetes
Hyperlipidemia
Plan/recommendations
At this time, patient appears to be nontoxic
Trapped lung physiology, right lung mass, right perihilar mass
Reviewed CT chest findings
There were also scattered nodular interstitial disease in bilateral lung parenchyma
Bony metastases per imaging
No abdominal findings
Suspect lymphangitic spread
Moving forward
Reviewed with patient and at length diagnosis of stage IV lung adenocarcinoma
Maintain chest tube to suction
Appreciate IR input, upsize of chest tube
Daily chest x-ray
Plan for bronchoscopy to assess airway, for endobronchial process given trapped lung physiology
Tentatively for Tuesday at 1:30 PM
Await oncology evaluation
Doubt additional tissue will be required but if so, will pursue during bronchoscopy as indicated
Molecular markers have been sent on pleural fluid
Distant tobacco history noted
Mechanical and prophylactic DVT prophylaxis. Patient would be considered high risk
Reviewed with primary service, patient/
Subjective Data
-
Date of Service:
Date of Service: November 19, 2023
Subjective:
Patient examined earlier this morning. Feels well. Right anterior chest discomfort has improved. Mild cough, no hemoptysis. Denies abdominal pain, nausea. Complaining of constipation which is unusual for him. at bedside. Patient observed
ambulating in the room without difficulty
Objective Data
Data Reviewed
Vital Signs / I&O / Oxygen:
Vital Signs
Temp Pulse Resp BP Pulse Ox
97.9 F 103 16 123/85 92
11/19/23 11:36 11/19/23 11:36 11/19/23 11:36 11/19/23 11:36 11/19/23 11:36
Intake and Output
11/18/23 11/19/23 11/20/23
06:59 06:59 06:59
Intake Total 480 / 480 120 / 120
Output Total 950 / 950 785 / 785
Balance -470 / -470 -665 / -665
SaO2 92
Nasal Cannula flow liters per 95
minute
Physical Exam
General: Comfortable
HEENT: Normocephalic and Anicteric
Cardiovascular: S1-S2, Regular Rhythm, Murmur (n), Rub (n), Peripheral Edema (n) and Calf Tenderness (n)
Respiratory: Wheeze (n), Crackles (n), Rhonchi (n), Non-Labored Respirations, Chest Tube (Right chest tube, respiratory variation) and Other (Decreased breath sounds right side, no crepitus)
GI: Soft, Non Distended and Non Tender
Neurology: Awake, Alert and No Motor Deficits
Skin: Cyanosis (n), Jaundice (n) and Rash (n)
Labs/Micro/Reports
Lab Data
11/19/23 06:10
11/19/23 06:10
Microbiology
11/17/23 13:26 Pleural Fluid Body Fluid Culture - Preliminary
No Growth After 48 Hours
11/17/23 13:26 Pleural Fluid Gram Stain - Preliminary
11/16/23 13:29 Pleural Fluid Body Fluid Culture - Preliminary
No Growth After 48 Hours
11/16/23 13:29 Pleural Fluid Gram Stain - Preliminary
11/16/23 13:29 Pleural Fluid Acid Fast Bacilli Smear - Preliminary
11/16/23 13:29 Pleural Fluid Acid Fast Bacilli Culture - Preliminary
--- NOTE | 2023-11-19 12:29 | W.PN.UPDATE ---
Update Note
Progress Note Update
seen and examined by me independently in collaboration with the biomedical service engineer.
Lab data and imaging data reviewed.
Addendum as below :
Patient remains on chest tube in denying any shortness of breath or worsening of any respiratory symptoms. No chest pain.
Chest with decreased breath sounds on the right side. No respiratory distress. Not hypoxic. Hemodynamically stable.
Follow-up chest x-ray from today shows persistent pneumothorax large duodenal right side. Suspect trapped right upper and middle lobe.
Patient with a malignant R pleural effusion-s/p chest tube placement now. Continue with chest tube management.
Adenocarcinoma of of the lung-metastatic to bones and pleural effusion-await further diuretics and markers on the malignant cells of the pleural fluid. Oncology consulted.
Trapped right upper and middle lobe-suspect secondary to obstructing bronchial mass.Bronchoscopy on Tuesday and further interventions based on findings.
[facility] pulmonary yesterday regarding further plan.
DW son who is a ortho resident on phone and went over the findings and plans.
Total time spent on today's encounter was 52 minutes which included time spent in counseling the patient/family regarding diagnosis and treatment plan as listed above, goals of care, and symptom management. Case was discussed with nursing staff,
specialists . All labs and imaging personally reviewed by me. Remainder the time spent in detailed review of previous records, lab data, imaging, and other medical provider documentation.
[2023-11-19 15:20] VITALS: BP 135/88
[2023-11-19 15:56] LABS: Glucose - Point of Care 249 mg/dl (70-99)
--- NOTE | 2023-11-19 17:03 | CON.ONC ---
Impression
Impression
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
Plan
Plan
long discusssionwith pt//son ( orthopedic resident in [facility]) regarding stage/ survival statistics; patient wishes to undergo aggressive care for which we discussed options pending molecular genetics; agree with FOB for addititonal tissue to
optimize aforementioned testing; staging MRI brain ordered; interested in referral to [facility] pul oncology for consideration clinical trial
Patient History
History of Present Illness
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
c/w lung primary. 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 He has no prior
films for comparison
Past-Medical/Surgical History
DM2; hyperlipidemia; hx renal cysts; former smoker
Patient Medication
�Medication �Instructions �Recorded �Confirmed �Last Taken �Type
atorvastatin 20 mg tablet 20 mg PO DAILY 07/05/21 11/16/23 11/16/23 History
ferrous sulfate 325 mg (65 mg 325 mg PO DAILY 11/16/23 11/16/23 11/16/23 History
iron) tablet
loperamide 2 mg capsule (Imodium 2 mg PO Q6HPRN PRN diarrhea 11/16/23 11/16/23 Unknown History
A-D)
metformin 1,000 mg tablet 1,000 mg PO BID 11/16/23 11/16/23 11/16/23 History
therapeutic multivitamin 1 tab PO DAILY 11/16/23 11/16/23 11/16/23 History
Active Medications
Generic Name Dose Route Start Last Admin
Trade Name Freq PRN Reason Stop Dose Admin
Acetaminophen 650 mg 11/16/23 15:27 11/17/23 16:35
Acetaminophen 325 Mg Tablet PO 12/14/23 15:26 650 mg
Q6HPRN PRN Administration
mild pain/ fever>100.5F
Atorvastatin Calcium 20 mg 11/17/23 08:00 11/19/23 08:05
Atorvastatin (Lipitor) 20 Mg Tablet PO 12/15/23 07:59 20 mg
DAILY KASSANDRA Administration
Bisacodyl 10 mg 11/16/23 15:27
Bisacodyl 10 Mg Rectal Suppository RECTAL 12/14/23 15:26
[id number] PRN
constipation
Dextrose 12.5 grams 11/16/23 15:27
Dextrose 50% (0.5 Grams/Ml) 50 Ml Syringe IV 12/14/23 15:26
[id number] PRN
hypoglycemia
Protocol
Enoxaparin Sodium 40 mg 11/16/23 18:00 11/18/23 17:10
Enoxaparin Sodium 40 Mg/0.4 Ml Syringe SC 12/14/23 17:59 40 mg
QPM KASSANDRA Administration
Ferrous Sulfate 325 mg 11/17/23 08:00 11/19/23 08:04
Ferrous Sulfate 325 Mg Tablet PO 12/15/23 07:59 325 mg
DAILY KASSANDRA Administration
Glucagon 1 mg 11/16/23 15:27
Glucagon 1 Mg Vial IM 12/14/23 15:26
PRN PRN
hypoglycemia
Protocol
Insulin Aspart 0 units 11/16/23 16:30 11/19/23 12:43
Insulin Aspart Low Resistance 300 Units/3 Ml Pen.Injctr SC 12/14/23 16:29 1 units
AC KASSANDRA Administration
Protocol
Loperamide HCl 2 mg 11/16/23 15:27
Loperamide 2 Mg Capsule PO 12/14/23 15:26
Q6HPRN PRN
diarrhea
Metformin HCl 1,000 mg 11/16/23 17:00 11/18/23 08:23
Metformin 1000 Mg Regular Release Tablet PO 12/14/23 16:59 Not Given
BID AT 0800,1700 KASSANDRA
Multivitamins Therapeutic 1 tablet 11/17/23 08:00 11/19/23 08:04
Multivitamin Tablet PO 12/15/23 07:59 1 tablet
DAILY KASSANDRA Administration
Polyethylene Glycol 17 grams 11/18/23 12:00 11/19/23 08:04
Polyethylene Glycol Powder 17 Grams Packet PO 12/16/23 11:59 17 grams
DAILY KASSANDRA Administration
Senna/Docusate Sodium 1 tablet 11/16/23 15:27 11/18/23 15:31
Docusate W/Senna (Liza-Colace) Tablet PO 12/14/23 15:26 1 tablet
BIDPRN PRN Administration
constipation
Sodium Chloride 0 flush 11/16/23 16:00
Sodium Chloride 0.9% (Flush) Syringe IV 12/14/23 15:59
PER PROTOCOL KASSANDRA
Review of Systems
-
History Source: Patient and Family
All Other Systems: Reviewed and Negative (other than as per HPI)
Physical Exam
-
General: No Apparent Distress
HEENT: Moist Mucous Membranes
Cardiology: Normal Sinus Rhythm
Pulmonary: Clear and Other (diminished right base)
GI: Soft
Musculoskeletal: No Clubbing, No Cyanosis and No Edema
Neurology: Non Focal
Psych: Calm
Labs
Lab Results
WBC 7.0 10^3/uL (4.8-10.8) 11/19/23 06:10
RBC 4.71 10^6/uL (4.70-6.10) 11/19/23 06:10
Hgb 14.3 g/dL (13.0-18.0) 11/19/23 06:10
Hct 40.9 % (39.0-52.0) 11/19/23 06:10
MCV 86.8 fL (80.0-94.0) 11/19/23 06:10
MCH 30.4 pg (27.0-31.0) 11/19/23 06:10
MCHC 35.0 g/dL (33.0-37.0) 11/19/23 06:10
RDW 11.9 % (11.5-14.5) 11/19/23 06:10
Plt Count 255 10^3/uL (130-400) 11/19/23 06:10
MPV 9.4 fL (7.4-10.4) 11/19/23 06:10
Abs Immat Gran (auto) 0.0 10^3/uL (0-0.05) 11/19/23 06:10
Absolute Neuts (auto) 5.0 10^3/uL (1.4-6.5) 11/19/23 06:10
Absolute Lymphs (auto) 1.2 10^3/uL (1.2-3.4) 11/19/23 06:10
Absolute Monos (auto) 0.7 10^3/uL (0.1-0.6) H 11/19/23 06:10
Absolute Eos (auto) 0.1 10^3/uL (0-0.7) 11/19/23 06:10
Absolute Basos (auto) 0.0 10^3/uL (0-0.2) 11/19/23 06:10
Immature Gran % 0.3 % (0-0.5) 11/19/23 06:10
Neutrophils % 71.8 % (42.2-75.2) 11/19/23 06:10
Lymphocytes % 16.6 % (20.5-51.1) L 11/19/23 06:10
Monocytes % 9.3 % (1.7-9.3) 11/19/23 06:10
Eosinophils % 1.4 % (0-6) 11/19/23 06:10
Basophils % 0.6 % (0-2) 11/19/23 06:10
Creatinine 0.7 mg/dL (0.7-1.3) 11/19/23 06:10
Vital Signs
Vital Signs
Temp Pulse Resp BP Pulse Ox
98.2 F 97 14 135/88 93
11/19/23 15:20 11/19/23 15:20 11/19/23 15:20 11/19/23 15:20 11/19/23 15:20
[2023-11-19] MEDS: LOVENOX 40 MG SC (18:00)
[2023-11-19] MEDS: GLUCOPHAGE PO (18:00)
[2023-11-19] MEDS: NOVOLOG FLEXPEN-LOW RESISTANCE 2 UNITS SC (18:01)
[2023-11-19 19:39] VITALS: BP 122/83
[2023-11-19 21:34] LABS: Glucose - Point of Care 140 mg/dl (70-99)
[2023-11-19 23:30] VITALS: BP 132/82
[2023-11-20 03:52] VITALS: BP 132/87
[2023-11-20 06:53] LABS: % Basophils 0.6 % (0-2); % Eosinophils 1.7 % (0-6); % Immature Granulocytes 0.4 % (0-0.5); % Lymphocytes 18.4 % (20.5-51.1); % Monocytes 10.3 % (1.7-9.3); % Neutrophils 68.6 % (42.2-75.2); Absolute Eosinophils 0.1 10^3/uL (0-0.7); Absolute Monocytes 0.6 10^3/uL (0.1-0.6); Absolute Neutrophils 3.7 10^3/uL (1.4-6.5); Hematocrit 40.4 % (39.0-52.0); Hemoglobin 14.2 g/dL (13.0-18.0); Mean Corp Hgb Conc. 35.1 g/dL (33.0-37.0); Mean Corpuscular Hgb 30.5 pg (27.0-31.0); Mean Corpuscular Volume 86.7 fL (80.0-94.0); Mean Platelet Volume 9.1 fL (7.4-10.4); Nucleated Red Blood Cells % 0 % (-); Platelet Count 247 10^3/uL (130-400); Red Blood Cell Count 4.66 10^6/uL (4.70-6.10); White Blood Cell Count 5.4 10^3/uL (4.8-10.8)
[2023-11-20 07:10] LABS: Blood Urea Nitrogen 12 mg/dl (9-20); Calcium 8.9 mg/dl (8.4-10.2); Carbon Dioxide 31 mmol/L (22-30); Chloride 102 mmol/L (98-107); Estimated Creatinine Clearance 100 ml/min; Glucose 153 mg/dl (70-99); Potassium 3.9 mmol/L (3.5-5.1); Sodium 138 mmol/L (135-145); eGFR > 60.00
[2023-11-20 07:20] LABS: Glucose - Point of Care 242 mg/dl (70-99)
[2023-11-20 07:30] VITALS: BP 134/91
[2023-11-20] MEDS: NOVOLOG FLEXPEN-LOW RESISTANCE 2 UNITS SC ×2 (08:51→11:53)
[2023-11-20] MEDS: FEOSOL 325 MG PO (08:52)
[2023-11-20] MEDS: LIPITOR 20 MG PO (08:52)
[2023-11-20] MEDS: THERAGRAN 1 TABLET PO (08:52)
[2023-11-20] MEDS: MIRALAX PO ×2 (08:52→08:56)
--- NOTE | 2023-11-20 10:46 | W.PN.UPDATE ---
Update Note
Progress Note Update
Seen and examined by me independently in collaboration with the manager medical writing.
Lab data and imaging data reviewed.
Addendum as below :
No new symptoms.
Any shortness of breath or chest pain.
Chest decreased breath sounds on the right side without any respiratory distress.
Chest tube without much drainage and no airleak.
For bronchoscopy tomorrow.
Decreased suction to -20 cm water.
--- NOTE | 2023-11-20 10:54 | W.PN.ONC ---
Today's Communication / Plan
-
remains upbeat-- reviewed normal brain MRI
Impression
Impression
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
Plan
Plan
long discusssionwith pt//son ( orthopedic resident in [facility]) regarding stage/ survival statistics; patient wishes to undergo aggressive care for which we discussed options pending molecular genetics; agree with FOB for addititonal tissue to
optimize aforementioned testing; staging MRI brain ordered and w/o mets; interested in referral to [facility] pul oncology for consideration clinical trial
Subjective/Objective
Subjective/Objective
unchanged
Vital Signs:
Vital Signs
Temp Pulse Resp BP Pulse Ox
98.2 F 92 16 134/91 93
11/20/23 07:30 11/20/23 07:30 11/20/23 07:30 11/20/23 07:30 11/20/23 07:30
Lab Results:
Laboratory Data
WBC 5.4 10^3/uL (4.8-10.8) 11/20/23 06:12
Hgb 14.2 g/dL (13.0-18.0) 11/20/23 06:12
Plt Count 247 10^3/uL (130-400) 11/20/23 06:12
PT 13.2 Sec (11.4-14.6) 11/16/23 08:53
INR 1.00 11/16/23 08:53
APTT 30.7 Sec (23.4-35.0) 11/16/23 08:53
eGFR > 60.00 11/20/23 06:12
Orders
Orders
Orders From Last 24 Hours
11/19/23 11:50
MRI Brain [MR Brain W/o & With Contrast] Routine
--- NOTE | 2023-11-20 11:05 | W.PN.HOSP.TC ---
Today's Communication/Plan
-
Bronchoscopy scheduled for tomorrow
Awaiting lung cancer markers
Oncology following patient for next steps
Assessment / Plan
Assessment / Plan
Impression:68-year-old male with history of NIDDM with white out of the right lung status post thoracentesis and chest tube placement. Chest tube output: 0 cc. No overnight events or new symptoms.
Plan:
Right lung mass
Oncology consult - reviewed treatment options with patient and family. Awaiting molecular genetics studies for next steps. Staging brain MRI showed no evidence of metastatic disease.
Bronchoscopy scheduled for tomorrow.
Right-sided pneumothorax
Post chest tube placement - likely trapped lung (right upper and middle lobes)
Consult IR appreciated -chest tube repositioning done
Hemodynamically stable
Right-sided pleural effusion
Fluid analysis - exudative, cytology- Positive for malignant cells, metastatic pulmonary adenocarcinoma, lung cancer markers pending
Pulmonary consult -stage IV lung adenocarcinoma, plan for bronchoscopy Tuesday, daily chest x-ray, oncology consult appreciated, DVT prophylaxis
Syncope
Possibly noncardiac due to post cough episodes, no episodes in hospital
NIDDM
Held metformin for IV contrast
Sliding scale insulin
Hyperlipidemia
Continue statin
Full code
DVT prophylaxis Lovenox
Anticipated Discharge: > 48 hours
Subjective/Interval History
-
Date of Service: November 20, 2023
Objective Data
-
Labs:
Laboratory Results
11/20/23
06:12
WBC 5.4
Hgb 14.2
Hct 40.4
Plt Count 247
Sodium 138
Potassium 3.9
Chloride 102
Carbon Dioxide 31 H
BUN 12
Creatinine 0.7
Glucose 153 H
Calcium 8.9
Vital Signs:
Vital Signs
Temp Pulse Resp BP Pulse Ox
98.2 F 92 16 134/91 93
11/20/23 07:30 11/20/23 07:30 11/20/23 07:30 11/20/23 07:30 11/20/23 07:30
I&O
11/19/23 11/20/23 11/21/23
06:59 06:59 06:59
Intake Total 120 / 120
Output Total 785 / 785 200 / 200
Balance -665 / -665 -200 / -200
Review of Systems
-
History Source: Patient
Constitutional: Reports Weight Loss and No Appetite (Loss of appetite)
EENT: Reports No Symptoms Reported
Respiratory: Reports Trouble Breathing (on exertion)
Cardiac: Reports No Symptoms
Abdomen/GI: Reports No Symptoms
Genitourinary: Reports No Symptoms
Musculoskeletal: Reports No Symptoms
Skin: Reports No Symptoms
Neuro: Reports No Symptoms
Endocrine: Reports No Symptoms
Hematologic / Lymphatic: Reports No Symptoms
Allergy / Immunology: Reports No Symptoms
Physical Exam
-
General: Well Developed and Well Nourished
Respiratory: Decreased Breath Sounds (On right side)
Cardiac: Regular Rhythm and S1/S2
GI: Soft, Nontender and Nondistended
Musculoskeletal: No Clubbing, No Cyanosis and No Edema
Neuro: Awake, Alert and Oriented
Hematologic / Lymphatic: No Lymphadenopathy
Psych: Calm
[2023-11-20 11:10] VITALS: BP 132/82
--- NOTE | 2023-11-20 11:22 | PTCARENOTE ---
order received from Dr Eason to decrease chest tube suction to -20 cm water seal. Suction has been at -20cm, Dr eason made aware with acknowledgement. plan of care on going.
[2023-11-20 11:35] LABS: Glucose - Point of Care 222 mg/dl (70-99)
--- NOTE | 2023-11-20 13:06 | W.PN.PUL3 ---
Today's Communication / Plan
-
Bronchoscopy tomorrow at 130
N.p.o. after midnight
Sips okay prior to 6 AM
Assessment
-
68-year-old male with 2-month history of cough, progressive shortness of breath, cough syncope, was recommended to obtain chest x-ray per primary, presents to the ED with progressive symptoms found to have complete whiteout of right lung, with
tracheal shift. We are asked to comment on pulmonary process
Stage IV Lung adenocarcinoma
Malignant right pleural effusion
Bony metastases per CT imaging
Large right pleural effusion
Status post thoracentesis 2 L 11/15
Slight improvement in tracheal shift, persistent large pleural effusion
S/P Chest tube, large bore 11/17
Mild interstitial findings left lung, my review
Cough, shortness of breath x 2 months
Progressive
10 pound weight loss
History of renal cysts
Moderate right hydronephrosis with nephrolithiasis per abdominal imaging 2021
Conditions present prior to admission
Distant tobacco history
Less than [id number], quit
History of schwannoma
Left foot biopsy 2019
Questionable history of hepatitis
Family history of liver cancer?
History of diabetes
Hyperlipidemia
Plan/recommendations
At this time, patient appears to be nontoxic
Trapped lung physiology, right lung mass, right perihilar mass
Reviewed CT chest findings
There were also scattered nodular interstitial disease in bilateral lung parenchyma
Bony metastases per imaging
No abdominal findings
Suspect lymphangitic spread
Moving forward
Reviewed with patient and at length diagnosis of stage IV lung adenocarcinoma
Maintain chest tube to suction, okay to decrease to -20
Appreciate IR input, upsize of chest tube
Plan for bronchoscopy to assess airway, for endobronchial process given trapped lung physiology
Tentatively for Tuesday at 1:30 PM
N.p.o. after midnight tonight, okay to take sips prior to 6 in the morning
Oncology correspondence reviewed. Reviewed with oncology. Additional tissue is requested given need for complete molecular testing
Molecular markers have been sent on pleural fluid
Distant tobacco history noted
Mechanical and prophylactic DVT prophylaxis. Patient would be considered high risk
Reviewed with primary service, patient/
Subjective Data
-
Date of Service:
Date of Service: November 20, 2023
Subjective:
No changes in symptoms. Occasional intermittent right chest discomfort, mild cough, no hemoptysis. Denies nausea, abdominal pain. at bedside
Objective Data
Data Reviewed
Vital Signs / I&O / Oxygen:
Vital Signs
Temp Pulse Resp BP Pulse Ox
98.4 F 93 16 132/82 93
11/20/23 11:10 11/20/23 11:10 11/20/23 11:10 11/20/23 11:10 11/20/23 11:10
Intake and Output
11/19/23 11/20/23 11/21/23
06:59 06:59 06:59
Intake Total 120 / 120
Output Total 785 / 785 200 / 200
Balance -665 / -665 -200 / -200
SaO2 93
Nasal Cannula flow liters per 95
minute
Physical Exam
General: Comfortable
HEENT: Normocephalic and Anicteric
Cardiovascular: S1-S2, Regular Rhythm, Murmur (n), Rub (n), Peripheral Edema (n) and Calf Tenderness (n)
Respiratory: Wheeze (n), Crackles (n), Rhonchi (n), Non-Labored Respirations, Chest Tube (Right chest tube, respiratory variation) and Other (Decreased breath sounds right side, no crepitus)
GI: Soft, Non Distended and Non Tender
Neurology: Awake, Alert and No Motor Deficits
Skin: Cyanosis (n), Jaundice (n) and Rash (n)
Labs/Micro/Reports
Lab Data
11/20/23 06:12
11/20/23 06:12
Microbiology
11/16/23 13:29 Pleural Fluid Body Fluid Culture - Final
No Growth After 72 Hours
11/16/23 13:29 Pleural Fluid Gram Stain - Final
11/17/23 13:26 Pleural Fluid Body Fluid Culture - Final
No Growth After 72 Hours
11/17/23 13:26 Pleural Fluid Gram Stain - Final
11/16/23 13:29 Pleural Fluid Acid Fast Bacilli Smear - Preliminary
11/16/23 13:29 Pleural Fluid Acid Fast Bacilli Culture - Preliminary
[2023-11-20 15:28] VITALS: BP 131/83
[2023-11-20 16:35] LABS: Glucose - Point of Care 196 mg/dl (70-99)
[2023-11-20] MEDS: LOVENOX 40 MG SC (17:24)
[2023-11-20] MEDS: NOVOLOG FLEXPEN-LOW RESISTANCE 1 UNITS SC (17:25)
[2023-11-20 19:52] VITALS: BP 120/86
[2023-11-20 21:35] LABS: Glucose - Point of Care 206 mg/dl (70-99)
[2023-11-20 23:55] VITALS: BP 127/84
[2023-11-21] VITALS (11 sets, daily range): BP systolic 106–136; BP diastolic 78–102
[2023-11-21 06:39] LABS: % Basophils 0.5 % (0-2); % Immature Granulocytes 0.5 % (0-0.5); % Lymphocytes 17.1 % (20.5-51.1); % Monocytes 10.7 % (1.7-9.3); % Neutrophils 69.2 % (42.2-75.2); Absolute Eosinophils 0.1 10^3/uL (0-0.7); Absolute Monocytes 0.6 10^3/uL (0.1-0.6); Absolute Neutrophils 4.1 10^3/uL (1.4-6.5); Hematocrit 40.2 % (39.0-52.0); Hemoglobin 14.2 g/dL (13.0-18.0); Mean Corp Hgb Conc. 35.3 g/dL (33.0-37.0); Mean Corpuscular Hgb 31.5 pg (27.0-31.0); Mean Corpuscular Volume 89.1 fL (80.0-94.0); Mean Platelet Volume 9.2 fL (7.4-10.4); Nucleated Red Blood Cells % 0 % (-); Platelet Count 259 10^3/uL (130-400); Red Blood Cell Count 4.51 10^6/uL (4.70-6.10); Red Cell Dist. Width 11.8 % (11.5-14.5); White Blood Cell Count 5.9 10^3/uL (4.8-10.8)
[2023-11-21 07:00] LABS: Blood Urea Nitrogen 17 mg/dl (9-20); Calcium 8.8 mg/dl (8.4-10.2); Carbon Dioxide 31 mmol/L (22-30); Chloride 102 mmol/L (98-107); Estimated Creatinine Clearance 100 ml/min; Glucose 185 mg/dl (70-99); Potassium 3.8 mmol/L (3.5-5.1); Sodium 137 mmol/L (135-145); eGFR > 60.00
[2023-11-21 08:01] LABS: Glucose - Point of Care 186 mg/dl (70-99)
[2023-11-21] MEDS: NOVOLOG FLEXPEN-LOW RESISTANCE SC ×2 (08:38→12:10)
[2023-11-21] MEDS: FEOSOL PO (08:39)
[2023-11-21] MEDS: THERAGRAN PO (08:39)
[2023-11-21] MEDS: LIPITOR PO (08:39)
[2023-11-21] MEDS: MIRALAX PO (08:39)
--- NOTE | 2023-11-21 09:05 | W.PN.ONC ---
Addendum entered and electronically signed by Ernestine Garcia DO 11/21/23 11:39:
The SECURITY PATROL DRIVER or PA's note was reviewed and I agree with the note.
Comment:
- stage IV lung adenocarcinoma with pleural and likely bone metastases.
- plan for bronch today for additional tissue.
- await molecular testing with remote smoking hx to help guide decision making.
Original Note:
Today's Communication / Plan
-
Patient wishes to undergo aggressive care which was discussed with Dr. Munroe over the weekend.
Pending molecular genetics; additional tissue to optimize aforementioned testing
11/19/23 MRI brain: No acute intracranial abnormality noted. No evidence to suggest intracranial metastatic disease.
Imaging was reviewed with patient 11/19
Bronchoscopy planned today at 13:30, remains NPO
Await tumor markers and further pathology results
Consider [facility] clinical trial
Management of chest tube per Pulmonary
We will continue to follow.
Impression
Impression
Stage IV adenocarcinoma of the lung with likely bone mets
Large right pleural effusion s/p thoracentesis and chest tube insertion
Weight loss ~10 lbs
Subjective/Objective
Subjective/Objective
patient resting comfortably in bed. denies acute pain or dyspnea. family at bedside.
Vital Signs:
Vital Signs
Temp Pulse Resp BP Pulse Ox
98.3 F 88 18 123/89 95
11/21/23 07:30 11/21/23 07:30 11/21/23 07:30 11/21/23 07:30 11/21/23 07:30
physical exam unchanged.
aaox3, pallor. chest tube to suction
Lab Results:
Laboratory Data
WBC 5.9 10^3/uL (4.8-10.8) 11/21/23 04:32
Hgb 14.2 g/dL (13.0-18.0) 11/21/23 04:32
Plt Count 259 10^3/uL (130-400) 11/21/23 04:32
PT 13.2 Sec (11.4-14.6) 11/16/23 08:53
INR 1.00 11/16/23 08:53
APTT 30.7 Sec (23.4-35.0) 11/16/23 08:53
eGFR > 60.00 11/21/23 04:32
11/19/23 Brain MRI: No acute intracranial abnormality noted. No evidence to suggest intracranial metastatic disease.
11/19/23 CXR: Persistent large right pneumothorax despite chest tube placement in keeping with trapped lung/lung entrapment.
[2023-11-21 12:06] LABS: Glucose - Point of Care 153 mg/dl (70-99)
--- NOTE | 2023-11-21 13:58 | W.PN.HOSP.TC ---
Addendum entered and electronically signed by Kinsey Murray MD 11/21/23 16:42:
I personally performed a history and physical exam of the patient and discussed management with the resident. I reviewed the resident's note and agree with the documented findings and plan of care HPI/CC except for changes in documentation.
Seen earlier- Late documentation.
68-year-old admitted with opacity in the right lung
CVS: S1-S2 normal
Chest: CTA B/L, decreased right base
Chest tube
Abdomen: Soft, NT
Extremities: No edema
# Right lung opacity on imaging
Status post thoracentesis and chest tube placement
Right-sided pneumothorax post chest tube-likely trapped lung
Chest tube repositioned
Fluid studies exudate
Cytology positive for malignant [id number] IV
Monocular markers have been sent on the pleural fluid-pending
MRI of the brain no metastatic disease
Osseous sclerotic metastasis
Right lung mass-bronchoscopy scheduled
# 8-10 pound weight loss
# Syncope-likely secondary to above
# Diabetes-metformin held because of IV contrast
Hemoglobin A1c 7.1
Sliding scale coverage
# Hyperlipidemia-continue statin
# History of schwannoma-left foot biopsy 2019
# [id number] decades ago
# DVT prophylaxis-Lovenox
# Full code
D/W at bed side
Original Note:
Today's Communication/Plan
-
Bronchoscopy today
Awaiting molecular testing and lung cancer markers
Oncology following patient
Assessment / Plan
Assessment / Plan
Impression: 68-year-old male with history of NIDDM with opacification of the right lung status post thoracentesis and chest tube placement. Chest tube output: 0 cc. No overnight events or new symptoms.
Plan:
Right lung mass
Oncology consult - reviewed treatment options with patient and family. Awaiting molecular genetics studies for next steps. Staging brain MRI showed no evidence of metastatic disease.
Bronchoscopy scheduled for today.
Right-sided pneumothorax
Post chest tube placement - likely trapped lung (right upper and middle lobes)
Consult IR appreciated - chest tube repositioning done
Hemodynamically stable
Right-sided pleural effusion
Fluid analysis - exudative, cytology- Positive for malignant cells, metastatic pulmonary adenocarcinoma, lung cancer markers pending
Pulmonary consult - stage IV lung adenocarcinoma, plan for bronchoscopy Tuesday, daily chest x-ray, oncology consult appreciated, DVT prophylaxis
Syncope
Possibly noncardiac due to post cough episodes, no episodes in hospital
NIDDM
Held metformin for IV contrast
Sliding scale insulin
Hyperlipidemia
Continue statin
Full code
DVT prophylaxis Lovenox
Anticipated Discharge: > 48 hours
Subjective/Interval History
-
Date of Service: November 21, 2023
Objective Data
-
Labs:
Laboratory Results
11/21/23
04:32
WBC 5.9
Hgb 14.2
Hct 40.2
Plt Count 259
Sodium 137
Potassium 3.8
Chloride 102
Carbon Dioxide 31 H
BUN 17
Creatinine 0.7
Glucose 185 H
Calcium 8.8
Vital Signs:
Vital Signs
Temp Pulse Resp BP Pulse Ox
98.7 F 83 20 136/91 95
11/21/23 11:37 11/21/23 11:37 11/21/23 11:37 11/21/23 11:37 11/21/23 11:37
I&O
11/20/23 11/21/23 11/22/23
06:59 06:59 06:59
Intake Total 680 / 680
Output Total 200 / 200 225 / 225
Balance -200 / -200 455 / 455
Review of Systems
-
History Source: Patient
Constitutional: Reports Weight Loss and No Appetite (Loss of appetite)
EENT: Reports No Symptoms Reported
Respiratory: Reports Trouble Breathing (on exertion)
Cardiac: Reports No Symptoms
Abdomen/GI: Reports No Symptoms
Genitourinary: Reports No Symptoms
Musculoskeletal: Reports No Symptoms
Skin: Reports No Symptoms
Neuro: Reports No Symptoms
Endocrine: Reports No Symptoms
Hematologic / Lymphatic: Reports No Symptoms
Allergy / Immunology: Reports No Symptoms
Physical Exam
-
General: Well Developed and Well Nourished
Respiratory: Decreased Breath Sounds (On right side)
Cardiac: Regular Rhythm and S1/S2
GI: Soft, Nontender and Nondistended
Musculoskeletal: No Clubbing, No Cyanosis and No Edema
Neuro: Awake, Alert and Oriented
Hematologic / Lymphatic: No Lymphadenopathy
Psych: Calm
--- NOTE | 2023-11-21 15:33 | W.PN.UPDATE ---
Addendum entered and electronically signed by Maggie Spear MD 11/21/23 17:35:
Reviewed at length options regarding chest tube management
Option 1: Discontinue chest tube and follow-up for recurrent fluid with tap intermittently, eventual Pleurx as clinically indicated
Option 2: Exchange chest tube for Pleurx catheter
I favor option 1, as patient tolerated right lung large pleural effusion with minimal symptoms
Can be managed as an outpatient while we are awaiting initiation of therapy for stage IV adenocarcinoma
This will be an ongoing discussion
Original Note:
Update Note
Progress Note Update
Bronchoscopy completed. See report for full details
There was no evidence of endobronchial lesion. There was significant frothy secretions predominantly in the left lung, likely from underlying tumor/adenocarcinoma
No endobronchial lesions. Mucosal edema throughout the left lung likely from atelectasis. Radial probe was used to assess proximal right middle lobe and right upper lobe. Images appear to be more consistent with atelectasis without obvious mass.
Given difficulty in differentiating between mass and atelectasis, biopsies were not pursued
Discussion with pathology confirmed adequate abnormal cells per pleural fluid for additional testing therefore risk from biopsy outweighed potential benefits
Reviewed findings with patient at length postprocedure
Also reached out to son at patient request (Kirill Holley/orthopedic resident: [phone])
Will follow
[2023-11-21 16:18] LABS: Glucose - Point of Care 216 mg/dl (70-99)
[2023-11-21] MEDS: LOVENOX 40 MG SC (17:12)
[2023-11-21] MEDS: NOVOLOG FLEXPEN-LOW RESISTANCE 2 UNITS SC (17:13)
--- NOTE | 2023-11-21 17:43 | CM ---
Continues with right chest tube
He has home oxygen . He is from room air here with POx 96%
Spoke with pt and in room. Pt declined need for home care
PLAN Home no anticipated needs
--- NOTE | 2023-11-21 19:27 | PTCARENOTE ---
CT dressing was changed as per order. RN noted chest tube was kinked at the insertion. IR and Pulmonary was notified. Tube un kinked, 400cc of yellow serous drainage came out. VSS stable, pt denies any SOB, pain or any distress. New orders received.
[2023-11-22 00:48] LABS: Glucose - Point of Care 284 mg/dl (70-99)
[2023-11-22 03:41] VITALS: BP 109/72
[2023-11-22 06:35] LABS: % Basophils 0.2 % (0-2); % Eosinophils 0.1 % (0-6); % Immature Granulocytes 0.3 % (0-0.5); % Lymphocytes 12.6 % (20.5-51.1); % Monocytes 8.5 % (1.7-9.3); % Neutrophils 78.3 % (42.2-75.2); Absolute Lymphocytes 1.1 10^3/uL (1.2-3.4); Absolute Monocytes 0.8 10^3/uL (0.1-0.6); Absolute Neutrophils 7.1 10^3/uL (1.4-6.5); Hematocrit 42.6 % (39.0-52.0); Hemoglobin 14.8 g/dL (13.0-18.0); Mean Corp Hgb Conc. 34.7 g/dL (33.0-37.0); Mean Corpuscular Hgb 31.2 pg (27.0-31.0); Mean Corpuscular Volume 89.9 fL (80.0-94.0); Mean Platelet Volume 8.9 fL (7.4-10.4); Nucleated Red Blood Cells % 0 % (-); Platelet Count 289 10^3/uL (130-400); Red Blood Cell Count 4.74 10^6/uL (4.70-6.10); Red Cell Dist. Width 11.7 % (11.5-14.5)
[2023-11-22 06:41] LABS: Blood Urea Nitrogen 19 mg/dl (9-20); Calcium 9.2 mg/dl (8.4-10.2); Carbon Dioxide 33 mmol/L (22-30); Chloride 102 mmol/L (98-107); Estimated Creatinine Clearance 88 ml/min; Glucose 207 mg/dl (70-99); Potassium 4.6 mmol/L (3.5-5.1); Sodium 139 mmol/L (135-145); eGFR > 60.00
[2023-11-22 07:41] VITALS: BP 122/88
--- NOTE | 2023-11-22 08:16 | W.PN.ONC ---
Today's Communication / Plan
-
Patient wishes to undergo aggressive care which was discussed with Dr. Munroe
Pending molecular genetics; additional tissue to optimize aforementioned testing
11/19/23 MRI brain: No acute intracranial abnormality noted. No evidence to suggest intracranial metastatic disease.
Imaging was reviewed with patient 11/19
11/21/23 s/p bronchoscopy with Dr. Spear
No biopsy was performed per report due to inability to differentiate between mass and atelectasis
Await further pathology results
Will discuss with Pathology department regarding adequate tissue sampling of pleural fluid for molecular studies
Management of chest tube per Pulmonary
Follow up for PRN thoracentesis vs. exchange of CT for PleurX catheter
Consideration of [facility] clinical trial
Supportive care
We will continue to follow.
Impression
Impression
Stage IV adenocarcinoma of the lung with likely bone mets
Large right pleural effusion s/p thoracentesis and chest tube insertion
Weight loss ~10 lbs
Subjective/Objective
Subjective/Objective
patient is resting comfortably in bed. family at bedside. he denies pain. he notes a coughing incident last evening. he endorses soreness with acute cough. denies bleeding, fever/chills or acute issue at this time.
Vital Signs:
Vital Signs
Temp Pulse Resp BP Pulse Ox
98.3 F 90 20 122/88 93
11/22/23 07:41 11/22/23 07:41 11/22/23 07:41 11/22/23 07:41 11/22/23 07:41
physical exam unchanged.
Lab Results:
Laboratory Data
WBC 9.0 10^3/uL (4.8-10.8) 11/22/23 05:22
Hgb 14.8 g/dL (13.0-18.0) 11/22/23 05:22
Plt Count 289 10^3/uL (130-400) 11/22/23 05:22
PT 13.2 Sec (11.4-14.6) 11/16/23 08:53
INR 1.00 11/16/23 08:53
APTT 30.7 Sec (23.4-35.0) 11/16/23 08:53
eGFR > 60.00 11/22/23 05:22
[2023-11-22 09:09] LABS: Glucose - Point of Care 271 mg/dl (70-99)
[2023-11-22] MEDS: LIPITOR 20 MG PO (09:13)
[2023-11-22] MEDS: THERAGRAN 1 TABLET PO (09:13)
[2023-11-22] MEDS: FEOSOL 325 MG PO (09:13)
[2023-11-22] MEDS: GLUCOPHAGE 1000 MG PO ×2 (09:15→16:58)
[2023-11-22] MEDS: NOVOLOG FLEXPEN-LOW RESISTANCE 3 UNITS SC (09:15)
[2023-11-22] MEDS: MIRALAX PO (09:19)
[2023-11-22 11:20] VITALS: BP 118/83
[2023-11-22 11:59] LABS: Glucose - Point of Care 158 mg/dl (70-99)
--- NOTE | 2023-11-22 12:16 | W.PN.PUL3 ---
Today's Communication / Plan
-
Discontinue chest tube
Chest x-ray next week with pulmonary follow-up
Eventual port placement, chemotherapy per oncology
May require Pleurx catheter, this can be determined as outpatient
Reviewed at length what symptoms to watch out for with the patient and at bedside
Disposition efforts
Assessment
-
68-year-old male with 2-month history of cough, progressive shortness of breath, cough syncope, was recommended to obtain chest x-ray per primary, presents to the ED with progressive symptoms found to have complete whiteout of right lung, with
tracheal shift. We are asked to comment on pulmonary process
Stage IV Lung adenocarcinoma
Malignant right pleural effusion
Bony metastases per CT imaging
Large right pleural effusion
Status post thoracentesis 2 L 11/15
Slight improvement in tracheal shift, persistent large pleural effusion
S/P Chest tube, large bore 11/17
rt trap lung
s/p bronch 11/20, no EB lesions
Mild interstitial findings left lung, my review
Cough, shortness of breath x 2 months
Progressive
10 pound weight loss
History of renal cysts
Moderate right hydronephrosis with nephrolithiasis per abdominal imaging 2021
Conditions present prior to admission
Distant tobacco history
Less than [id number], quit
History of schwannoma
Left foot biopsy 2019
Questionable history of hepatitis
Family history of liver cancer?
History of diabetes
Hyperlipidemia
Plan/recommendations
At this time, patient appears to be nontoxic
Trapped lung physiology, right lung mass, right perihilar mass
Reviewed CT chest findings
Bronchoscopy without findings of endobronchial lesions
Chest x-ray with evidence of recurrence of fluid
Drainage increases with tube manipulation
There were also scattered nodular interstitial disease in bilateral lung parenchyma
Bony metastases per imaging
No abdominal findings
Suspect lymphangitic spread
Stage IV adenocarcinoma confirmed with malignant right pleural effusion
Moving forward
Reviewed with patient and at length diagnosis of stage IV lung adenocarcinoma
Okay to discontinue chest tube today
I suspect fluid will return
As long as patient is asymptomatic, will drain intermittently as outpatient
Will evaluate for Pleurx catheter as outpatient
Hope for initiation of chemotherapy in the next few weeks
Oncology correspondence reviewed. Molecular markers pending
Distant tobacco history noted
Mechanical and prophylactic DVT prophylaxis. Patient would be considered high risk
Patient remains active, was playing volleyball 3-4 times a week with right lung completely down with large pleural effusion
Reviewed with primary service, patient/
Outpatient pulmonary follow-up information left in chart
Subjective Data
-
Date of Service:
Date of Service: November 22, 2023
Subjective:
Patient is feeling well. He does have some mild cough and describes an episode yesterday p.m. while eating a cookie with brief aspiration. Symptoms have since resolved. Denies hemoptysis, chest pain. Chest tube drainage increased with
manipulation yesterday p.m. Patient ambulating without difficulty
Objective Data
Data Reviewed
Vital Signs / I&O / Oxygen:
Vital Signs
Temp Pulse Resp BP Pulse Ox
98.4 F 87 18 118/83 94
11/22/23 11:20 11/22/23 11:20 11/22/23 11:20 11/22/23 11:20 11/22/23 11:20
Intake and Output
11/21/23 11/22/23 11/23/23
06:59 06:59 06:59
Intake Total 680 / 680 350 / 350
Output Total 225 / 225 730 / 730
Balance 455 / 455 -380 / -380
SaO2 94
Nasal Cannula flow liters per 2
minute
Physical Exam
General: Comfortable
HEENT: Normocephalic and Anicteric
Cardiovascular: S1-S2, Regular Rhythm, Murmur (n), Rub (n), Peripheral Edema (n) and Calf Tenderness (n)
Respiratory: Wheeze (n), Crackles (n), Rhonchi (n), Non-Labored Respirations, Chest Tube (Right chest tube, respiratory variation) and Other (Decreased breath sounds right side, no crepitus)
GI: Soft, Non Distended and Non Tender
Neurology: Awake, Alert and No Motor Deficits
Skin: Cyanosis (n), Jaundice (n) and Rash (n)
Labs/Micro/Reports
Lab Data
11/22/23 05:22
11/22/23 05:22
Microbiology
11/16/23 13:29 Pleural Fluid Body Fluid Culture - Final
No Growth After 72 Hours
11/16/23 13:29 Pleural Fluid Gram Stain - Final
11/17/23 13:26 Pleural Fluid Body Fluid Culture - Final
No Growth After 72 Hours
11/17/23 13:26 Pleural Fluid Gram Stain - Final
--- NOTE | 2023-11-22 14:00 | W.PN.HOSP.TC ---
Addendum entered and electronically signed by Kinsey Murray MD 11/22/23 15:00:
I personally performed a history and physical exam of the patient and discussed management with the resident. I reviewed the resident's note and agree with the documented findings and plan of care HPI/CC except for changes in documentation.
68-year-old admitted with opacity in the right lung
Bronchoscopy-right upper lobe mass. Right middle lobe mass. Right lower lobe mass. Airway exam normal with mucosal edema no endobronchial lesions. No biopsies
Chest x-ray reviewed by me -large right pneumothorax and increasing right pleural effusion
Chest: CTA B/L
Abdomen: Soft, NT
Extremities: No edema
# Right lung opacity on imaging
Status post thoracentesis and chest tube placement
Right-sided pneumothorax post chest tube-likely trapped lung
Chest tube repositioned
Fluid studies exudate
Cytology positive for malignant [id number]-[id number] IV
Monocular markers have been sent on the pleural fluid-pending
MRI of the brain no metastatic disease
Osseous sclerotic metastasis
Right lung mass-S/P Bronch on 11/21/23
Cough-as needed Robitussin
Chest tube to be removed today per discussion with .
Also okay for discharge.
# 8-10 pound weight loss
# Syncope-likely secondary to above
# Diabetes-
Hemoglobin A1c 7.1
Sliding scale coverage
Metformin restarted.
# Hyperlipidemia-continue statin
# History of schwannoma-left foot biopsy 2019
# Uj-albskw-fedzbye decades ago
# DVT prophylaxis-Lovenox
# Full code
Patient and had a lot of questions all were answered
Discussed with pulmonary-okay for discharge today after chest tube removal. Patient will be monitored as outpatient.
Patient needs a port to be placed as outpatient and oncology evaluation
Discharge coordination time more than 30 minutes
Original Note:
Today's Communication/Plan
-
IR consult for chest tube removal
Resume metformin
Outpatient follow-up with pulmonary next week for chest x-ray
Outpatient follow-up with oncology for initiation of treatment
Planning on discharge after chest tube removal
Assessment / Plan
Assessment / Plan
Impression: 68-year-old male with history of NIDDM with opacification of the right lung status post thoracentesis and chest tube placement. Chest tube output: 430 cc. Notes 1 episode of severe cough after eating food last night. Planning on
discharge today after removal of chest tube.
Plan:
Right lung mass
Oncology consult - reviewed treatment options with patient and family. Awaiting molecular genetics studies for next steps. Staging brain MRI showed no evidence of metastatic disease. Outpatient follow-up for next steps of treatment.
Bronchoscopy - no endobronchial mass was not identified, no biopsies were taken.
Pulmonary consult - DVT prophylaxis
Right-sided pneumothorax
Post chest tube placement - likely trapped lung (right upper and middle lobes)
Pulmonary following -recommend discontinuing chest tube, chest x-ray next week with pulmonary follow-up, may require Pleurx catheter (to be determined as outpatient)
Consult IR appreciated - chest tube removal
Hemodynamically stable
Right-sided pleural effusion
Fluid analysis - exudative, cytology- Positive for malignant cells, metastatic pulmonary adenocarcinoma, lung cancer markers pending
Consult IR appreciated - chest tube removal
Pulmonary consult - stage IV lung adenocarcinoma, chest x-ray today shows increasing right pleural effusion with persistent large right pneumothorax
Syncope
Possibly noncardiac due to post cough episodes, no episodes in hospital
NIDDM
Resume metformin
Sliding scale insulin
Hyperlipidemia
Continue statin
Full code
DVT prophylaxis Lovenox
Anticipated Discharge: Today
Subjective/Interval History
-
Date of Service: November 22, 2023
Objective Data
-
Labs:
Laboratory Results
11/22/23
05:22
WBC 9.0
Hgb 14.8
Hct 42.6
Plt Count 289
Sodium 139
Potassium 4.6
Chloride 102
Carbon Dioxide 33 H
BUN 19
Creatinine 0.8
Glucose 207 H
Calcium 9.2
Vital Signs:
Vital Signs
Temp Pulse Resp BP Pulse Ox
98.4 F 87 18 118/83 94
11/22/23 11:20 11/22/23 11:20 11/22/23 11:20 11/22/23 11:20 11/22/23 11:20
I&O
11/21/23 11/22/23 11/23/23
06:59 06:59 06:59
Intake Total 680 / 680 350 / 350
Output Total 225 / 225 730 / 730
Balance 455 / 455 -380 / -380
Review of Systems
-
History Source: Patient
Constitutional: Reports Weight Loss and No Appetite (Loss of appetite)
EENT: Reports No Symptoms Reported
Respiratory: Reports Cough (Severe cough after eating food (last night after bronchoscopy)) and Trouble Breathing (on exertion)
Cardiac: Reports No Symptoms
Abdomen/GI: Reports No Symptoms
Genitourinary: Reports No Symptoms
Musculoskeletal: Reports No Symptoms
Skin: Reports No Symptoms
Neuro: Reports No Symptoms
Endocrine: Reports No Symptoms
Hematologic / Lymphatic: Reports No Symptoms
Allergy / Immunology: Reports No Symptoms
Physical Exam
-
General: Well Developed and Well Nourished
Respiratory: Decreased Breath Sounds (On right side)
Cardiac: Regular Rhythm and S1/S2
GI: Soft, Nontender and Nondistended
Musculoskeletal: No Clubbing, No Cyanosis and No Edema
Neuro: Awake, Alert and Oriented
Hematologic / Lymphatic: No Lymphadenopathy
Psych: Calm
--- NOTE | 2023-11-22 14:49 | PN.IRAD.UPD ---
Update Note - IRAD
- -
Right side chest tube removed. New ,clean,dry dressing and Vaseline gauze placed over site. Patient tolerated procedure well.
--- NOTE | 2023-11-22 14:54 | PTCARENOTE ---
Charmaine RN- right chest tube removed by Nelida Walker RTR. occlusive dressing in place. patient instructed to leave dressing in place x2 days. Dr. Williamson declined to order chest tube post removal.
[2023-11-22] MEDS: NOVOLOG FLEXPEN-LOW RESISTANCE SC (15:29)
[2023-11-22 15:32] VITALS: BP 109/77
[2023-11-22 16:55] LABS: Glucose - Point of Care 202 mg/dl (70-99)
--- NOTE | 2023-11-22 16:55 | CM ---
Pulmonary involved .
Spoke with pt and in room.Offered VN he declined need.
will drive him home.
MD to decide if chest tube remains.
PLAN Home no needs Pt has home oxygen prn he purchased in past
[2023-11-22] MEDS: LOVENOX 40 MG SC (16:58)
[2023-11-22] MEDS: NOVOLOG FLEXPEN-LOW RESISTANCE 2 UNITS SC (16:59)
== END 2023-11-22 19:05 | disposition home or self-care (01) | DRG 181 ==
LOC: 4 EAST ACU 12:03
PROVIDERS: Radiology Vascular & Interventional Radiology; ADMITTING PHYSICIAN Internal Medicine; ATTENDING PHYSICIAN Hospitalist; CONSULT PHYSICIAN Internal Medicine Critical Care Medicine; EMERGENCY PHYSICIAN Student in an Organized Health Care Education/Training Program; FAMILY PHYSICIAN Family Medicine; OTHER PHYSICIAN Internal Medicine Hematology & Oncology
PROC: 0W993ZX Drainage of Right Pleural Cavity, Percutaneous Approach, Diagnostic (ICD-10-PCS; 2023-11-16)
PROC: 0BJ08ZZ Inspection of Tracheobronchial Tree, Via Natural or Artificial Opening Endoscopic (ICD-10-PCS; 2023-11-21)
DX: C34.90 Malignant neoplasm of unspecified part of unspecified bronchus or lung (principal); C77.9 Secondary and unspecified malignant neoplasm of lymph node, unspecified; C79.51 Secondary malignant neoplasm of bone; J98.19 Other pulmonary collapse; J98.11 Atelectasis; J91.0 Malignant pleural effusion; E11.649 Type 2 diabetes mellitus with hypoglycemia without coma; E78.00 Pure hypercholesterolemia, unspecified
CPT/HCPCS: 88305; 32555; 32557; 70553; 71045; 71046; 71260; 74177; 80048; 80053; 81003; 81459; 82962; 83036; 83615; 83880; 83986; 84132; 84155; 84157; 84478; 84484; 85025; 85610; 85730; 87015; 87070; 87116; 87205; 88112; 88341; 88342; 89051; 93005; 97161; 97165; 99152; 99285; A9575; C1729; C1769; Q9967

== ENCOUNTER → 2023-11-29 08:18 | Outpatient (REF) | payer BC, MEDICARE, SELFPAY ==
[2023-11-29 08:42] VITALS: BP 137/89; BP_SYST 93
[2023-11-29 08:44] VITALS: BMI 22.5
[2023-11-29] MEDS: ANCEF 10 IV (09:22)
== END ==
LOC: RADI 08:18
PROVIDERS: ATTENDING PHYSICIAN Internal Medicine Hematology & Oncology; FAMILY PHYSICIAN Family Medicine
DX: C34.91 Malignant neoplasm of unspecified part of right bronchus or lung (principal)
CPT/HCPCS: 36561; 76937; 77001; 99152; 99153; C1788

== ENCOUNTER → 2023-12-01 08:03 | Outpatient (REF) | payer BC, MEDICARE, SELFPAY | LOC: RCS 08:03 | PROVIDERS: ATTENDING PHYSICIAN Internal Medicine Hematology & Oncology; FAMILY PHYSICIAN Family Medicine | DX: C34.91 Malignant neoplasm of unspecified part of right bronchus or lung (principal) | CPT/HCPCS: 93306 ==

== ENCOUNTER → 2023-12-14 12:34 | Outpatient (REF) | payer BC, SELFPAY | LOC: RAD 12:34 | PROVIDERS: ATTENDING PHYSICIAN Internal Medicine Critical Care Medicine; FAMILY PHYSICIAN Family Medicine | DX: J90 Pleural effusion, not elsewhere classified (principal) | CPT/HCPCS: 71046 ==

== ENCOUNTER → 2023-12-22 09:06 | Outpatient (REF) | payer BC, SELFPAY ==
[2023-12-22 10:02] LABS: % Basophils 0.3 % (0-2); % Eosinophils 0.5 % (0-6); % Lymphocytes 25.1 % (20.5-51.1); % Monocytes 14.1 % (1.7-9.3); Absolute Lymphocytes 0.9 10^3/uL (1.2-3.4); Absolute Monocytes 0.5 10^3/uL (0.1-0.6); Absolute Neutrophils 2.3 10^3/uL (1.4-6.5); Hematocrit 38.5 % (39.0-52.0); Hemoglobin 13.2 g/dL (13.0-18.0); Mean Corp Hgb Conc. 34.3 g/dL (33.0-37.0); Mean Corpuscular Hgb 30.6 pg (27.0-31.0); Mean Corpuscular Volume 89.1 fL (80.0-94.0); Mean Platelet Volume 9.1 fL (7.4-10.4); Nucleated Red Blood Cells % 0 % (-); Platelet Count 124 10^3/uL (130-400); Red Blood Cell Count 4.32 10^6/uL (4.70-6.10); Red Cell Dist. Width 11.6 % (11.5-14.5); White Blood Cell Count 3.8 10^3/uL (4.8-10.8)
[2023-12-22 10:26] LABS: Glucose - Point of Care 119 mg/dl (70-99)
[2023-12-22 10:43] LABS: ALT (SGPT) 16 U/L (0-50); AST (SGOT) 21 U/L (17-59); Albumin 3.9 g/dl (3.5-5.0); Alkaline Phosphatase 91 U/L (38-126); Blood Urea Nitrogen 14 mg/dl (9-20); Calcium 9.2 mg/dl (8.4-10.2); Carbon Dioxide 28 mmol/L (22-30); Chloride 99 mmol/L (98-107); Glucose 132 mg/dl (70-99); Potassium 3.9 mmol/L (3.5-5.1); Sodium 141 mmol/L (135-145); Total Bilirubin 0.6 mg/dl (0.2-1.3); Total Protein 6.6 g/dl (6.3-8.2); eGFR > 60.00
== END ==
LOC: REG 09:06
PROVIDERS: ATTENDING PHYSICIAN Internal Medicine Hematology & Oncology; FAMILY PHYSICIAN Family Medicine
DX: C34.91 Malignant neoplasm of unspecified part of right bronchus or lung (principal); C79.51 Secondary malignant neoplasm of bone
CPT/HCPCS: 36415; 80053; 82962; 85025

== ENCOUNTER → 2023-12-22 09:18 | Outpatient (REF) | payer BC, SELFPAY ==
[2023-12-22] VITALS (7 sets, daily range): BP systolic 85–139; BP diastolic 87–94
[2023-12-22] MEDS: ANCEF 10 IV (11:02)
[2023-12-22 12:02] LABS: Glucose - Point of Care 123 mg/dl (70-99)
== END ==
LOC: RADI 09:18
PROVIDERS: ATTENDING PHYSICIAN Nurse Practitioner Adult Health; FAMILY PHYSICIAN Family Medicine
DX: J94.8 Other specified pleural conditions (principal); Z85.118 Personal history of other malignant neoplasm of bronchus and lung
CPT/HCPCS: 32550; 75989; 82962; 99152; 99153; C1729; C1769

== ENCOUNTER → 2023-12-27 10:12 | Outpatient (REF) | payer BC, SELFPAY ==
[2023-12-27 12:19] LABS: % Basophils 0.7 % (0-2); % Immature Granulocytes 0.3 % (0-0.5); % Lymphocytes 32.1 % (20.5-51.1); % Monocytes 17.1 % (1.7-9.3); % Neutrophils 49.8 % (42.2-75.2); Absolute Lymphocytes 0.9 10^3/uL (1.2-3.4); Absolute Monocytes 0.5 10^3/uL (0.1-0.6); Absolute Neutrophils 1.5 10^3/uL (1.4-6.5); Hematocrit 39.8 % (39.0-52.0); Hemoglobin 13.8 g/dL (13.0-18.0); Mean Corp Hgb Conc. 34.7 g/dL (33.0-37.0); Mean Corpuscular Hgb 30.4 pg (27.0-31.0); Mean Corpuscular Volume 87.7 fL (80.0-94.0); Mean Platelet Volume 8.4 fL (7.4-10.4); Nucleated Red Blood Cells % 0 % (-); Platelet Count 225 10^3/uL (130-400); Red Blood Cell Count 4.54 10^6/uL (4.70-6.10); White Blood Cell Count 2.9 10^3/uL (4.8-10.8)
[2023-12-27 12:44] LABS: ALT (SGPT) 18 U/L (0-50); AST (SGOT) 24 U/L (17-59); Albumin 3.9 g/dl (3.5-5.0); Alkaline Phosphatase 94 U/L (38-126); Blood Urea Nitrogen 14 mg/dl (9-20); Calcium 9.5 mg/dl (8.4-10.2); Carbon Dioxide 28 mmol/L (22-30); Chloride 99 mmol/L (98-107); Glucose 125 mg/dl (70-99); Potassium 4.1 mmol/L (3.5-5.1); Sodium 142 mmol/L (135-145); Total Bilirubin 0.3 mg/dl (0.2-1.3); Total Protein 6.7 g/dl (6.3-8.2); eGFR > 60.00
== END ==
LOC: REG 10:12
PROVIDERS: ATTENDING PHYSICIAN Internal Medicine Hematology & Oncology; FAMILY PHYSICIAN Family Medicine
DX: C34.91 Malignant neoplasm of unspecified part of right bronchus or lung (principal); C79.51 Secondary malignant neoplasm of bone
CPT/HCPCS: 36415; 80053; 85025

== ENCOUNTER → 2024-01-16 11:15 | Outpatient (REF) | payer BC, SELFPAY ==
[2024-01-16 11:53] LABS: Hematocrit 33.1 % (39.0-52.0); Hemoglobin 11.1 g/dL (13.0-18.0); Mean Corp Hgb Conc. 33.5 g/dL (33.0-37.0); Mean Corpuscular Hgb 29.2 pg (27.0-31.0); Mean Corpuscular Volume 87.1 fL (80.0-94.0); Mean Platelet Volume 8.6 fL (7.4-10.4); Platelet Count 251 10^3/uL (130-400); Red Cell Dist. Width 13.1 % (11.5-14.5); White Blood Cell Count 2.5 10^3/uL (4.8-10.8)
[2024-01-16 12:31] LABS: ALT (SGPT) 22 U/L (0-50); AST (SGOT) 24 U/L (17-59); Alkaline Phosphatase 75 U/L (38-126); Blood Urea Nitrogen 18 mg/dl (9-20); Calcium 9.6 mg/dl (8.4-10.2); Carbon Dioxide 29 mmol/L (22-30); Chloride 101 mmol/L (98-107); Glucose 129 mg/dl (70-99); Potassium 4.2 mmol/L (3.5-5.1); Sodium 141 mmol/L (135-145); Total Bilirubin 0.2 mg/dl (0.2-1.3); Total Protein 6.9 g/dl (6.3-8.2); eGFR > 60.00
[2024-01-16 12:47] LABS: Absolute Neutrophils -Man Diff 0.9 10^3/uL (1.4-6.5); Band Neutrophils 0 % (0-3); Lymphocytes 47 % (20-51); Monocytes 16 % (2-9); Normal RBC Morphology Yes; Platelets Checked Yes; Segmented Neutrophils 37 % (42-75)
[2024-01-16 13:21] LABS: Total Cells Counted 100
== END ==
LOC: REG 11:15
PROVIDERS: ATTENDING PHYSICIAN Internal Medicine Hematology & Oncology
DX: C34.91 Malignant neoplasm of unspecified part of right bronchus or lung (principal); C79.51 Secondary malignant neoplasm of bone
CPT/HCPCS: 36415; 80053; 85025

== ENCOUNTER → 2024-01-24 07:11 | Outpatient (REF) | payer BC, SELFPAY | LOC: RCS 07:11 | PROVIDERS: ATTENDING PHYSICIAN Internal Medicine Hematology & Oncology; FAMILY PHYSICIAN Family Medicine | DX: C34.91 Malignant neoplasm of unspecified part of right bronchus or lung (principal); C79.51 Secondary malignant neoplasm of bone | CPT/HCPCS: 93306; 93356 ==

== ENCOUNTER → 2024-02-06 12:58 | Outpatient (REF) | payer BC, SELFPAY ==
[2024-02-06 13:35] LABS: % Basophils 0.4 % (0-2); % Eosinophils 0.2 % (0-6); % Lymphocytes 9.2 % (20.5-51.1); % Monocytes 7.7 % (1.7-9.3); % Neutrophils 81.5 % (42.2-75.2); Absolute Basophils 0.1 10^3/uL (0-0.2); Absolute Immature Granulocytes 0.1 10^3/uL (0-0.05); Absolute Lymphocytes 1.1 10^3/uL (1.2-3.4); Absolute Neutrophils 10.2 10^3/uL (1.4-6.5); Hematocrit 27.6 % (39.0-52.0); Hemoglobin 9.5 g/dL (13.0-18.0); Mean Corp Hgb Conc. 34.4 g/dL (33.0-37.0); Mean Corpuscular Hgb 30.9 pg (27.0-31.0); Mean Corpuscular Volume 89.9 fL (80.0-94.0); Nucleated Red Blood Cells % 0.4 % (-); Platelet Count 249 10^3/uL (130-400); Red Blood Cell Count 3.07 10^6/uL (4.70-6.10); Red Cell Dist. Width 15.9 % (11.5-14.5); White Blood Cell Count 12.5 10^3/uL (4.8-10.8)
[2024-02-06 14:02] LABS: ALT (SGPT) 22 U/L (0-50); AST (SGOT) 24 U/L (17-59); Albumin 3.8 g/dl (3.5-5.0); Alkaline Phosphatase 112 U/L (38-126); Blood Urea Nitrogen 15 mg/dl (9-20); Calcium 9.3 mg/dl (8.4-10.2); Carbon Dioxide 27 mmol/L (22-30); Chloride 101 mmol/L (98-107); Glucose 116 mg/dl (70-99); Sodium 139 mmol/L (135-145); Total Bilirubin 0.2 mg/dl (0.2-1.3); Total Protein 6.8 g/dl (6.3-8.2); eGFR > 60.00
== END ==
LOC: REG 12:58
PROVIDERS: ATTENDING PHYSICIAN Internal Medicine Hematology & Oncology; FAMILY PHYSICIAN Family Medicine
DX: C34.91 Malignant neoplasm of unspecified part of right bronchus or lung (principal); C79.51 Secondary malignant neoplasm of bone
CPT/HCPCS: 36415; 80053; 85025

== ENCOUNTER → 2024-02-14 11:45 | Outpatient (REF) | payer BC, SELFPAY ==
[2024-02-14 13:09] LABS: Hematocrit 26.4 % (39.0-52.0); Mean Corp Hgb Conc. 34.1 g/dL (33.0-37.0); Red Cell Dist. Width 16.1 % (11.5-14.5); White Blood Cell Count 12.1 10^3/uL (4.8-10.8)
[2024-02-14 13:28] LABS: ALT (SGPT) 22 U/L (0-50); AST (SGOT) 33 U/L (17-59); Alkaline Phosphatase 120 U/L (38-126); Blood Urea Nitrogen 29 mg/dl (9-20); Calcium 9.6 mg/dl (8.4-10.2); Carbon Dioxide 28 mmol/L (22-30); Chloride 96 mmol/L (98-107); Glucose 150 mg/dl (70-99); Potassium 4.3 mmol/L (3.5-5.1); Sodium 136 mmol/L (135-145); Total Bilirubin 0.6 mg/dl (0.2-1.3); Total Protein 6.9 g/dl (6.3-8.2); eGFR > 60.00
[2024-02-14 13:41] LABS: % Basophils 0.7 % (0-2); % Eosinophils 0.1 % (0-6); % Immature Granulocytes 2.3 % (0-0.5); % Lymphocytes 7.3 % (20.5-51.1); % Monocytes 4.4 % (1.7-9.3); % Neutrophils 85.2 % (42.2-75.2); Absolute Basophils 0.1 10^3/uL (0-0.2); Absolute Immature Granulocytes 0.3 10^3/uL (0-0.05); Absolute Lymphocytes 0.9 10^3/uL (1.2-3.4); Absolute Monocytes 0.5 10^3/uL (0.1-0.6); Absolute Neutrophils 10.4 10^3/uL (1.4-6.5); Mean Platelet Volume 10.5 fL (7.4-10.4); Nucleated Red Blood Cells % 0 % (-); Platelet Count 94 10^3/uL (130-400)
== END ==
LOC: REG 11:45
PROVIDERS: ATTENDING PHYSICIAN Internal Medicine Hematology & Oncology; FAMILY PHYSICIAN Family Medicine
DX: C34.91 Malignant neoplasm of unspecified part of right bronchus or lung (principal); C79.51 Secondary malignant neoplasm of bone; J91.0 Malignant pleural effusion
CPT/HCPCS: 36415; 80053; 85025

== ENCOUNTER → 2024-02-27 10:33 | Outpatient (REF) | payer BC, SELFPAY ==
[2024-02-27 11:16] LABS: % Basophils 0.2 % (0-2); % Eosinophils 0.2 % (0-6); % Immature Granulocytes 1.1 % (0-0.5); % Lymphocytes 7.6 % (20.5-51.1); % Monocytes 8.1 % (1.7-9.3); % Neutrophils 82.8 % (42.2-75.2); Absolute Immature Granulocytes 0.1 10^3/uL (0-0.05); Absolute Lymphocytes 0.8 10^3/uL (1.2-3.4); Absolute Monocytes 0.9 10^3/uL (0.1-0.6); Absolute Neutrophils 8.7 10^3/uL (1.4-6.5); Hematocrit 25.8 % (39.0-52.0); Hemoglobin 8.1 g/dL (13.0-18.0); Mean Corp Hgb Conc. 31.4 g/dL (33.0-37.0); Mean Corpuscular Hgb 31.2 pg (27.0-31.0); Mean Corpuscular Volume 99.2 fL (80.0-94.0); Mean Platelet Volume 9.8 fL (7.4-10.4); Nucleated Red Blood Cells % 0.4 % (-); Platelet Count 167 10^3/uL (130-400); Red Cell Dist. Width 19.3 % (11.5-14.5); White Blood Cell Count 10.5 10^3/uL (4.8-10.8)
[2024-02-27 12:59] LABS: ALT (SGPT) 22 U/L (0-50); AST (SGOT) 25 U/L (17-59); Albumin 4.1 g/dl (3.5-5.0); Alkaline Phosphatase 94 U/L (38-126); Blood Urea Nitrogen 19 mg/dl (9-20); Calcium 9.3 mg/dl (8.4-10.2); Carbon Dioxide 28 mmol/L (22-30); Chloride 99 mmol/L (98-107); Glucose 162 mg/dl (70-99); Potassium 4.3 mmol/L (3.5-5.1); Sodium 142 mmol/L (135-145); Total Bilirubin 0.2 mg/dl (0.2-1.3); Total Protein 7.3 g/dl (6.3-8.2); eGFR > 60.00
== END ==
LOC: REG 10:33
PROVIDERS: ATTENDING PHYSICIAN Internal Medicine Hematology & Oncology
DX: C34.91 Malignant neoplasm of unspecified part of right bronchus or lung (principal); C79.51 Secondary malignant neoplasm of bone; J91.0 Malignant pleural effusion
CPT/HCPCS: 36415; 80053; 85025

== ENCOUNTER → 2024-03-07 10:17 | Outpatient (REF) | payer BC, SELFPAY ==
[2024-03-07 11:54] LABS: % Basophils 0.3 % (0-2); % Eosinophils 0.3 % (0-6); % Immature Granulocytes 0.3 % (0-0.5); % Lymphocytes 22.3 % (20.5-51.1); % Neutrophils 64.8 % (42.2-75.2); Absolute Lymphocytes 0.7 10^3/uL (1.2-3.4); Absolute Monocytes 0.4 10^3/uL (0.1-0.6); Hematocrit 24.5 % (39.0-52.0); Hemoglobin 7.9 g/dL (13.0-18.0); Mean Corp Hgb Conc. 32.2 g/dL (33.0-37.0); Mean Corpuscular Hgb 32.2 pg (27.0-31.0); Mean Platelet Volume 9.8 fL (7.4-10.4); Nucleated Red Blood Cells % 0 % (-); Platelet Count 154 10^3/uL (130-400); Red Blood Cell Count 2.45 10^6/uL (4.70-6.10); Red Cell Dist. Width 17.3 % (11.5-14.5); White Blood Cell Count 3.1 10^3/uL (4.8-10.8)
== END ==
LOC: REG 10:17
PROVIDERS: ATTENDING PHYSICIAN Internal Medicine Hematology & Oncology
DX: C34.91 Malignant neoplasm of unspecified part of right bronchus or lung (principal); C79.51 Secondary malignant neoplasm of bone; J91.0 Malignant pleural effusion; D64.81 Anemia due to antineoplastic chemotherapy
CPT/HCPCS: 36415; 85025; 86850; 86900; 86901

== ENCOUNTER → 2024-03-19 07:58 | Outpatient (REF) | payer BC, SELFPAY ==
[2024-03-19 08:27] LABS: Hematocrit 28.2 % (39.0-52.0); Hemoglobin 9.1 g/dL (13.0-18.0); Mean Corp Hgb Conc. 32.3 g/dL (33.0-37.0); Mean Corpuscular Hgb 33.3 pg (27.0-31.0); Mean Corpuscular Volume 103.3 fL (80.0-94.0); Mean Platelet Volume 9.1 fL (7.4-10.4); Platelet Count 155 10^3/uL (130-400); Red Blood Cell Count 2.73 10^6/uL (4.70-6.10); Red Cell Dist. Width 18.3 % (11.5-14.5); White Blood Cell Count 2.8 10^3/uL (4.8-10.8)
[2024-03-19 08:57] LABS: ALT (SGPT) 25 U/L (0-50); AST (SGOT) 26 U/L (17-59); Albumin 4.2 g/dl (3.5-5.0); Alkaline Phosphatase 63 U/L (38-126); Blood Urea Nitrogen 18 mg/dl (9-20); Calcium 9.1 mg/dl (8.4-10.2); Carbon Dioxide 31 mmol/L (22-30); Chloride 101 mmol/L (98-107); Glucose 147 mg/dl (70-99); Potassium 3.9 mmol/L (3.5-5.1); Sodium 141 mmol/L (135-145); Total Bilirubin 0.3 mg/dl (0.2-1.3); Total Protein 7.1 g/dl (6.3-8.2); eGFR > 60.00
[2024-03-19 10:45] LABS: Absolute Neutrophils -Man Diff 1.5 10^3/uL (1.4-6.5); Band Neutrophils 1 % (0-3); Eosinophils 1 % (0-6); Lymphocytes 29 % (20-51); Monocytes 15 % (2-9); Platelets Checked Yes; Segmented Neutrophils 54 % (42-75)
[2024-03-19 10:46] LABS: Anisocytosis 1+; Normal RBC Morphology No; Polychromasia 1+; Total Cells Counted 100
== END ==
LOC: REG 07:58
PROVIDERS: ATTENDING PHYSICIAN Internal Medicine Hematology & Oncology; FAMILY PHYSICIAN Family Medicine
DX: C34.91 Malignant neoplasm of unspecified part of right bronchus or lung (principal); C79.51 Secondary malignant neoplasm of bone
CPT/HCPCS: 36415; 80053; 85025

== ENCOUNTER → 2024-03-28 15:24 | Outpatient (REF) | payer BC, SELFPAY ==
[2024-03-28 11:10] LABS: % Basophils 0.2 % (0-2); % Eosinophils 0.2 % (0-6); % Immature Granulocytes 13.6 % (0-0.5); % Lymphocytes 7.8 % (20.5-51.1); % Monocytes 7.1 % (1.7-9.3); % Neutrophils 71.1 % (42.2-75.2); Absolute Immature Granulocytes 1.7 10^3/uL (0-0.05); Absolute Monocytes 0.9 10^3/uL (0.1-0.6); Absolute Neutrophils 8.7 10^3/uL (1.4-6.5); Hematocrit 30.3 % (39.0-52.0); Mean Corpuscular Hgb 32.8 pg (27.0-31.0); Mean Corpuscular Volume 99.3 fL (80.0-94.0); Mean Platelet Volume 11.1 fL (7.4-10.4); Platelet Count 103 10^3/uL (130-400); Red Blood Cell Count 3.05 10^6/uL (4.70-6.10); Red Cell Dist. Width 15.2 % (11.5-14.5); White Blood Cell Count 12.3 10^3/uL (4.8-10.8)
== END ==
LOC: OIDL 15:24
PROVIDERS: ATTENDING PHYSICIAN Internal Medicine Hematology & Oncology
DX: C34.91 Malignant neoplasm of unspecified part of right bronchus or lung (principal)
CPT/HCPCS: 85025

== ENCOUNTER → 2024-04-25 14:49 | Outpatient (REF) | payer BC, SELFPAY ==
[2024-04-25 15:09] LABS: % Basophils 0.6 % (0-2); % Eosinophils 0.6 % (0-6); % Immature Granulocytes 0.2 % (0-0.5); % Lymphocytes 17.6 % (20.5-51.1); % Monocytes 13.2 % (1.7-9.3); % Neutrophils 67.8 % (42.2-75.2); Absolute Lymphocytes 0.9 10^3/uL (1.2-3.4); Absolute Monocytes 0.7 10^3/uL (0.1-0.6); Absolute Neutrophils 3.4 10^3/uL (1.4-6.5); Hematocrit 36.2 % (39.0-52.0); Hemoglobin 11.4 g/dL (13.0-18.0); Mean Corp Hgb Conc. 31.5 g/dL (33.0-37.0); Mean Corpuscular Hgb 30.6 pg (27.0-31.0); Mean Corpuscular Volume 97.1 fL (80.0-94.0); Platelet Count 171 10^3/uL (130-400); Red Blood Cell Count 3.73 10^6/uL (4.70-6.10); Red Cell Dist. Width 13.9 % (11.5-14.5); White Blood Cell Count 5.1 10^3/uL (4.8-10.8)
== END ==
LOC: OIDL 14:49
PROVIDERS: ATTENDING PHYSICIAN Internal Medicine Hematology & Oncology
DX: C34.91 Malignant neoplasm of unspecified part of right bronchus or lung (principal); C79.51 Secondary malignant neoplasm of bone; J91.0 Malignant pleural effusion; D64.81 Anemia due to antineoplastic chemotherapy
CPT/HCPCS: 85025

== ENCOUNTER → 2024-04-30 13:57 | Outpatient (REF) | payer BC, SELFPAY ==
[2024-04-30 14:57] LABS: % Basophils 0.7 % (0-2); % Eosinophils 0.7 % (0-6); % Immature Granulocytes 0.2 % (0-0.5); % Lymphocytes 17.3 % (20.5-51.1); % Monocytes 13.3 % (1.7-9.3); % Neutrophils 67.8 % (42.2-75.2); Absolute Lymphocytes 0.9 10^3/uL (1.2-3.4); Absolute Monocytes 0.7 10^3/uL (0.1-0.6); Absolute Neutrophils 3.7 10^3/uL (1.4-6.5); Hematocrit 34.3 % (39.0-52.0); Hemoglobin 11.1 g/dL (13.0-18.0); Mean Corp Hgb Conc. 32.4 g/dL (33.0-37.0); Mean Corpuscular Hgb 30.5 pg (27.0-31.0); Mean Corpuscular Volume 94.2 fL (80.0-94.0); Mean Platelet Volume 10.3 fL (7.4-10.4); Nucleated Red Blood Cells % 0 % (-); Platelet Count 156 10^3/uL (130-400); Red Blood Cell Count 3.64 10^6/uL (4.70-6.10); Red Cell Dist. Width 13.7 % (11.5-14.5); White Blood Cell Count 5.4 10^3/uL (4.8-10.8)
[2024-04-30 15:14] LABS: ALT (SGPT) 21 U/L (0-50); AST (SGOT) 25 U/L (17-59); Albumin 4.3 g/dl (3.5-5.0); Alkaline Phosphatase 66 U/L (38-126); Blood Urea Nitrogen 16 mg/dl (9-20); Calcium 9.1 mg/dl (8.4-10.2); Carbon Dioxide 30 mmol/L (22-30); Chloride 98 mmol/L (98-107); Glucose 127 mg/dl (70-99); Potassium 3.8 mmol/L (3.5-5.1); Sodium 139 mmol/L (135-145); Total Bilirubin 0.2 mg/dl (0.2-1.3); Total Protein 7.2 g/dl (6.3-8.2); eGFR > 60.00
== END ==
LOC: REG 13:57
PROVIDERS: ATTENDING PHYSICIAN Internal Medicine Hematology & Oncology; FAMILY PHYSICIAN Family Medicine
DX: C34.91 Malignant neoplasm of unspecified part of right bronchus or lung (principal); C79.51 Secondary malignant neoplasm of bone
CPT/HCPCS: 36415; 80053; 85025

== ENCOUNTER → 2024-05-21 09:45 | Outpatient (REF) | payer BC, SELFPAY ==
[2024-05-21 10:41] LABS: % Basophils 0.4 % (0-2); % Eosinophils 1.5 % (0-6); % Immature Granulocytes 1.5 % (0-0.5); % Monocytes 12.3 % (1.7-9.3); % Neutrophils 68.3 % (42.2-75.2); Absolute Eosinophils 0.1 10^3/uL (0-0.7); Absolute Immature Granulocytes 0.1 10^3/uL (0-0.05); Absolute Lymphocytes 0.8 10^3/uL (1.2-3.4); Absolute Monocytes 0.6 10^3/uL (0.1-0.6); Absolute Neutrophils 3.2 10^3/uL (1.4-6.5); Hematocrit 35.7 % (39.0-52.0); Hemoglobin 11.6 g/dL (13.0-18.0); Mean Corp Hgb Conc. 32.5 g/dL (33.0-37.0); Mean Corpuscular Volume 92.2 fL (80.0-94.0); Mean Platelet Volume 9.2 fL (7.4-10.4); Nucleated Red Blood Cells % 0 % (-); Platelet Count 136 10^3/uL (130-400); Red Blood Cell Count 3.87 10^6/uL (4.70-6.10); Red Cell Dist. Width 14.2 % (11.5-14.5); White Blood Cell Count 4.7 10^3/uL (4.8-10.8)
[2024-05-21 11:11] LABS: ALT (SGPT) 27 U/L (0-50); AST (SGOT) 26 U/L (17-59); Albumin 4.6 g/dl (3.5-5.0); Alkaline Phosphatase 76 U/L (38-126); Blood Urea Nitrogen 16 mg/dl (9-20); Calcium 9.4 mg/dl (8.4-10.2); Carbon Dioxide 30 mmol/L (22-30); Chloride 98 mmol/L (98-107); Glucose 179 mg/dl (70-99); Sodium 138 mmol/L (135-145); Total Bilirubin 0.8 mg/dl (0.2-1.3); Total Protein 7.4 g/dl (6.3-8.2); eGFR > 60.00
== END ==
LOC: REG 09:45
PROVIDERS: ATTENDING PHYSICIAN Internal Medicine Hematology & Oncology; FAMILY PHYSICIAN Family Medicine
DX: C34.91 Malignant neoplasm of unspecified part of right bronchus or lung (principal); C79.51 Secondary malignant neoplasm of bone
CPT/HCPCS: 36415; 80053; 85025

== ENCOUNTER → 2024-06-11 11:21 | Outpatient (REF) | payer BC, SELFPAY ==
[2024-06-11 13:08] LABS: % Basophils 0.4 % (0-2); % Eosinophils 0.6 % (0-6); % Immature Granulocytes 0.2 % (0-0.5); % Lymphocytes 16.9 % (20.5-51.1); % Monocytes 12.4 % (1.7-9.3); % Neutrophils 69.5 % (42.2-75.2); Absolute Lymphocytes 0.8 10^3/uL (1.2-3.4); Absolute Monocytes 0.6 10^3/uL (0.1-0.6); Absolute Neutrophils 3.4 10^3/uL (1.4-6.5); Hematocrit 36.7 % (39.0-52.0); Hemoglobin 11.7 g/dL (13.0-18.0); Mean Corp Hgb Conc. 31.9 g/dL (33.0-37.0); Mean Corpuscular Hgb 29.5 pg (27.0-31.0); Mean Corpuscular Volume 92.7 fL (80.0-94.0); Mean Platelet Volume 9.8 fL (7.4-10.4); Nucleated Red Blood Cells % 0 % (-); Platelet Count 154 10^3/uL (130-400); Red Blood Cell Count 3.96 10^6/uL (4.70-6.10); Red Cell Dist. Width 14.5 % (11.5-14.5); White Blood Cell Count 4.9 10^3/uL (4.8-10.8)
[2024-06-11 14:22] LABS: ALT (SGPT) 19 U/L (0-50); AST (SGOT) 25 U/L (17-59); Albumin 4.9 g/dl (3.5-5.0); Alkaline Phosphatase 78 U/L (38-126); Blood Urea Nitrogen 17 mg/dl (9-20); Calcium 9.7 mg/dl (8.4-10.2); Carbon Dioxide 30 mmol/L (22-30); Chloride 98 mmol/L (98-107); Glucose 144 mg/dl (70-99); Potassium 3.7 mmol/L (3.5-5.1); Sodium 140 mmol/L (135-145); Total Bilirubin 0.8 mg/dl (0.2-1.3); Total Protein 7.8 g/dl (6.3-8.2); eGFR > 60.00
== END ==
LOC: REG 11:21
PROVIDERS: ATTENDING PHYSICIAN Internal Medicine Hematology & Oncology; FAMILY PHYSICIAN Family Medicine
DX: C34.91 Malignant neoplasm of unspecified part of right bronchus or lung (principal); C79.51 Secondary malignant neoplasm of bone
CPT/HCPCS: 36415; 80053; 85025

== ENCOUNTER → 2024-07-02 10:00 | Outpatient (REF) | payer BC, SELFPAY ==
[2024-07-02 10:26] LABS: % Basophils 0.3 % (0-2); % Eosinophils 0.9 % (0-6); % Immature Granulocytes 0.5 % (0-0.5); % Lymphocytes 15.2 % (20.5-51.1); % Monocytes 11.1 % (1.7-9.3); Absolute Eosinophils 0.1 10^3/uL (0-0.7); Absolute Lymphocytes 0.9 10^3/uL (1.2-3.4); Absolute Monocytes 0.7 10^3/uL (0.1-0.6); Absolute Neutrophils 4.2 10^3/uL (1.4-6.5); Hematocrit 35.8 % (39.0-52.0); Hemoglobin 11.5 g/dL (13.0-18.0); Mean Corp Hgb Conc. 32.1 g/dL (33.0-37.0); Mean Corpuscular Hgb 29.5 pg (27.0-31.0); Mean Corpuscular Volume 91.8 fL (80.0-94.0); Mean Platelet Volume 9.3 fL (7.4-10.4); Nucleated Red Blood Cells % 0 % (-); Platelet Count 165 10^3/uL (130-400); Red Cell Dist. Width 15.9 % (11.5-14.5); White Blood Cell Count 5.9 10^3/uL (4.8-10.8)
[2024-07-02 14:04] LABS: ALT (SGPT) 32 U/L (0-50); AST (SGOT) 31 U/L (17-59); Albumin 4.8 g/dl (3.5-5.0); Alkaline Phosphatase 82 U/L (38-126); Blood Urea Nitrogen 19 mg/dl (9-20); Calcium 9.6 mg/dl (8.4-10.2); Carbon Dioxide 31 mmol/L (22-30); Chloride 100 mmol/L (98-107); Glucose 151 mg/dl (70-99); Potassium 4.2 mmol/L (3.5-5.1); Sodium 141 mmol/L (135-145); Total Bilirubin 0.7 mg/dl (0.2-1.3); Total Protein 7.7 g/dl (6.3-8.2); eGFR > 60.00
== END ==
LOC: REG 10:00
PROVIDERS: ATTENDING PHYSICIAN Internal Medicine Hematology & Oncology; FAMILY PHYSICIAN Family Medicine
DX: C34.91 Malignant neoplasm of unspecified part of right bronchus or lung (principal); C79.51 Secondary malignant neoplasm of bone
CPT/HCPCS: 36415; 80053; 85025

== ENCOUNTER → 2024-07-16 08:28 | Outpatient (REF) | payer BC, SELFPAY ==
[2024-07-16 08:45] VITALS: BP 136/91; BP_SYST 100
== END ==
LOC: RADI 08:28
PROVIDERS: ATTENDING PHYSICIAN Internal Medicine; FAMILY PHYSICIAN Family Medicine
DX: Z46.82 Encounter for fitting and adjustment of non-vascular catheter (principal); C34.90 Malignant neoplasm of unspecified part of unspecified bronchus or lung; J91.0 Malignant pleural effusion
CPT/HCPCS: 32552; C1769

== ENCOUNTER → 2024-07-23 12:12 | Outpatient (REF) | payer BC, MEDICARE, SELFPAY ==
[2024-07-23 13:34] LABS: % Basophils 0.5 % (0-2); % Immature Granulocytes 0.5 % (0-0.5); % Lymphocytes 11.8 % (20.5-51.1); % Monocytes 13.4 % (1.7-9.3); % Neutrophils 72.8 % (42.2-75.2); Absolute Eosinophils 0.1 10^3/uL (0-0.7); Absolute Lymphocytes 0.7 10^3/uL (1.2-3.4); Absolute Monocytes 0.8 10^3/uL (0.1-0.6); Absolute Neutrophils 4.2 10^3/uL (1.4-6.5); Hemoglobin 11.3 g/dL (13.0-18.0); Mean Corp Hgb Conc. 32.3 g/dL (33.0-37.0); Mean Corpuscular Hgb 29.5 pg (27.0-31.0); Mean Corpuscular Volume 91.4 fL (80.0-94.0); Mean Platelet Volume 9.3 fL (7.4-10.4); Nucleated Red Blood Cells % 0 % (-); Platelet Count 150 10^3/uL (130-400); Red Blood Cell Count 3.83 10^6/uL (4.70-6.10); Red Cell Dist. Width 15.5 % (11.5-14.5); White Blood Cell Count 5.8 10^3/uL (4.8-10.8)
[2024-07-23 15:36] LABS: ALT (SGPT) 21 U/L (0-50); AST (SGOT) 25 U/L (17-59); Albumin 4.7 g/dl (3.5-5.0); Alkaline Phosphatase 81 U/L (38-126); Blood Urea Nitrogen 23 mg/dl (9-20); Calcium 9.8 mg/dl (8.4-10.2); Carbon Dioxide 26 mmol/L (22-30); Chloride 102 mmol/L (98-107); Glucose 236 mg/dl (70-99); Potassium 4.2 mmol/L (3.5-5.1); Sodium 143 mmol/L (135-145); Total Bilirubin 0.5 mg/dl (0.2-1.3); Total Protein 7.4 g/dl (6.3-8.2); eGFR > 60.00
[2024-07-23 17:14] LABS: PSA, Total - Screen 3.02 ng/ml (0.0-4.0)
== END ==
LOC: REG 12:12
PROVIDERS: ATTENDING PHYSICIAN Internal Medicine Hematology & Oncology; FAMILY PHYSICIAN Family Medicine
DX: C34.91 Malignant neoplasm of unspecified part of right bronchus or lung (principal); C79.51 Secondary malignant neoplasm of bone; J91.0 Malignant pleural effusion; D64.81 Anemia due to antineoplastic chemotherapy
CPT/HCPCS: 36415; 80053; 85025; G0103

== ENCOUNTER → 2024-08-13 10:15 | Outpatient (REF) | payer BC, MEDICARE, SELFPAY ==
[2024-08-13 10:55] LABS: % Basophils 0.4 % (0-2); % Eosinophils 0.9 % (0-6); % Immature Granulocytes 0.2 % (0-0.5); % Lymphocytes 16.8 % (20.5-51.1); % Monocytes 12.7 % (1.7-9.3); Absolute Lymphocytes 0.8 10^3/uL (1.2-3.4); Absolute Monocytes 0.6 10^3/uL (0.1-0.6); Absolute Neutrophils 3.2 10^3/uL (1.4-6.5); Hematocrit 37.1 % (39.0-52.0); Hemoglobin 11.9 g/dL (13.0-18.0); Mean Corp Hgb Conc. 32.1 g/dL (33.0-37.0); Mean Corpuscular Hgb 29.8 pg (27.0-31.0); Mean Platelet Volume 9.5 fL (7.4-10.4); Nucleated Red Blood Cells % 0 % (-); Platelet Count 157 10^3/uL (130-400); Red Blood Cell Count 3.99 10^6/uL (4.70-6.10); White Blood Cell Count 4.6 10^3/uL (4.8-10.8)
[2024-08-13 11:10] LABS: ALT (SGPT) 28 U/L (0-50); AST (SGOT) 26 U/L (17-59); Albumin 4.8 g/dl (3.5-5.0); Alkaline Phosphatase 64 U/L (38-126); Blood Urea Nitrogen 17 mg/dl (9-20); Calcium 9.6 mg/dl (8.4-10.2); Carbon Dioxide 31 mmol/L (22-30); Chloride 101 mmol/L (98-107); Glucose 185 mg/dl (70-99); Potassium 3.9 mmol/L (3.5-5.1); Sodium 142 mmol/L (135-145); Total Bilirubin 0.7 mg/dl (0.2-1.3); Total Protein 7.6 g/dl (6.3-8.2); eGFR > 60.00
== END ==
LOC: REG 10:15
PROVIDERS: ATTENDING PHYSICIAN Internal Medicine Hematology & Oncology
DX: C34.91 Malignant neoplasm of unspecified part of right bronchus or lung (principal); C79.51 Secondary malignant neoplasm of bone; J91.0 Malignant pleural effusion; D64.81 Anemia due to antineoplastic chemotherapy
CPT/HCPCS: 36415; 80053; 85025

== ENCOUNTER → 2024-09-04 10:18 | Outpatient (REF) | payer BC, SELFPAY ==
[2024-09-04 11:50] LABS: % Basophils 0.5 % (0-2); % Eosinophils 0.9 % (0-6); % Immature Granulocytes 0.7 % (0-0.5); % Monocytes 11.7 % (1.7-9.3); % Neutrophils 70.2 % (42.2-75.2); Absolute Lymphocytes 0.7 10^3/uL (1.2-3.4); Absolute Monocytes 0.5 10^3/uL (0.1-0.6); Absolute Neutrophils 3.1 10^3/uL (1.4-6.5); Hematocrit 35.1 % (39.0-52.0); Hemoglobin 11.5 g/dL (13.0-18.0); Mean Corp Hgb Conc. 32.8 g/dL (33.0-37.0); Mean Corpuscular Hgb 30.3 pg (27.0-31.0); Mean Corpuscular Volume 92.4 fL (80.0-94.0); Mean Platelet Volume 10.4 fL (7.4-10.4); Nucleated Red Blood Cells % 0 % (-); Platelet Count 165 10^3/uL (130-400); Red Cell Dist. Width 14.8 % (11.5-14.5); White Blood Cell Count 4.4 10^3/uL (4.8-10.8)
[2024-09-04 12:42] LABS: ALT (SGPT) 28 U/L (0-50); AST (SGOT) 28 U/L (17-59); Albumin 4.6 g/dl (3.5-5.0); Alkaline Phosphatase 67 U/L (38-126); Blood Urea Nitrogen 19 mg/dl (9-20); Calcium 9.6 mg/dl (8.4-10.2); Carbon Dioxide 28 mmol/L (22-30); Chloride 104 mmol/L (98-107); Glucose 161 mg/dl (70-99); Sodium 141 mmol/L (135-145); Total Bilirubin 0.5 mg/dl (0.2-1.3); Total Protein 7.4 g/dl (6.3-8.2); eGFR > 60.00
== END ==
LOC: REG 10:18
PROVIDERS: ATTENDING PHYSICIAN Internal Medicine Hematology & Oncology; FAMILY PHYSICIAN Family Medicine
DX: C34.91 Malignant neoplasm of unspecified part of right bronchus or lung (principal); C79.51 Secondary malignant neoplasm of bone; J91.0 Malignant pleural effusion; D64.81 Anemia due to antineoplastic chemotherapy
CPT/HCPCS: 36415; 80053; 85025

== ENCOUNTER → 2024-09-24 09:47 | Outpatient (REF) | payer BC, SELFPAY ==
[2024-09-24 10:31] LABS: % Basophils 0.4 % (0-2); % Eosinophils 0.9 % (0-6); % Immature Granulocytes 0.2 % (0-0.5); % Lymphocytes 16.8 % (20.5-51.1); % Monocytes 15.7 % (1.7-9.3); Absolute Lymphocytes 0.8 10^3/uL (1.2-3.4); Absolute Monocytes 0.7 10^3/uL (0.1-0.6); Hematocrit 36.5 % (39.0-52.0); Hemoglobin 11.7 g/dL (13.0-18.0); Mean Corp Hgb Conc. 32.1 g/dL (33.0-37.0); Mean Corpuscular Hgb 29.7 pg (27.0-31.0); Mean Corpuscular Volume 92.6 fL (80.0-94.0); Mean Platelet Volume 9.8 fL (7.4-10.4); Nucleated Red Blood Cells % 0 % (-); Platelet Count 165 10^3/uL (130-400); Red Blood Cell Count 3.94 10^6/uL (4.70-6.10); White Blood Cell Count 4.5 10^3/uL (4.8-10.8)
[2024-09-24 11:26] LABS: ALT (SGPT) 48 U/L (0-50); AST (SGOT) 36 U/L (17-59); Albumin 4.6 g/dl (3.5-5.0); Alkaline Phosphatase 70 U/L (38-126); Blood Urea Nitrogen 16 mg/dl (9-20); Calcium 9.5 mg/dl (8.4-10.2); Carbon Dioxide 29 mmol/L (22-30); Chloride 104 mmol/L (98-107); Glucose 257 mg/dl (70-99); Potassium 4.1 mmol/L (3.5-5.1); Sodium 141 mmol/L (135-145); Total Bilirubin 0.6 mg/dl (0.2-1.3); Total Protein 7.6 g/dl (6.3-8.2); eGFR > 60.00
== END ==
LOC: REG 09:47
PROVIDERS: ATTENDING PHYSICIAN Internal Medicine Hematology & Oncology; FAMILY PHYSICIAN Family Medicine
DX: C34.91 Malignant neoplasm of unspecified part of right bronchus or lung (principal); C79.51 Secondary malignant neoplasm of bone; J91.0 Malignant pleural effusion; D64.81 Anemia due to antineoplastic chemotherapy
CPT/HCPCS: 36415; 80053; 85025

== ENCOUNTER → 2024-10-01 07:29 | Outpatient (REF) | payer BC, SELFPAY ==
[2024-10-01 10:00] LABS: ALT (SGPT) 53 U/L (0-50); AST (SGOT) 45 U/L (17-59); Albumin 4.5 g/dl (3.5-5.0); Alkaline Phosphatase 69 U/L (38-126); Blood Urea Nitrogen 16 mg/dl (9-20); Calcium 9.1 mg/dl (8.4-10.2); Carbon Dioxide 29 mmol/L (22-30); Chloride 102 mmol/L (98-107); Glucose 214 mg/dl (70-99); HDL Cholesterol 66 mg/dl; LDL Cholesterol, Calculated 47 mg/dl; Potassium 4.2 mmol/L (3.5-5.1); Sodium 139 mmol/L (135-145); Total Cholesterol 145 mg/dl (50-199); Total Protein 7.1 g/dl (6.3-8.2); Triglyceride 162 mg/dl (10-149); Very Low Density Lipoprotein 32 mg/dl (0-30); eGFR > 60.00
== END ==
LOC: RCS 07:29
PROVIDERS: ATTENDING PHYSICIAN Internal Medicine; FAMILY PHYSICIAN Family Medicine
DX: R00.0 Tachycardia, unspecified (principal); R06.02 Shortness of breath; R42 Dizziness and giddiness; I44.4 Left anterior fascicular block; I31.39 Other pericardial effusion (noninflammatory); E11.9 Type 2 diabetes mellitus without complications; E78.00 Pure hypercholesterolemia, unspecified
CPT/HCPCS: 36415; 80053; 80061; 93306; 93356

== ENCOUNTER → 2024-10-08 07:24 | Outpatient (REF) | payer BC, SELFPAY | LOC: RCS 07:24 | PROVIDERS: ATTENDING PHYSICIAN Internal Medicine; FAMILY PHYSICIAN Family Medicine | DX: R06.02 Shortness of breath (principal); R00.0 Tachycardia, unspecified; R42 Dizziness and giddiness; I44.4 Left anterior fascicular block | CPT/HCPCS: 93017 ==

== ENCOUNTER → 2024-10-15 10:43 | Outpatient (REF) | payer BC, SELFPAY ==
[2024-10-15 12:17] LABS: Hematocrit 36.6 % (39.0-52.0); Hemoglobin 12.0 g/dL (13.0-18.0); Mean Corp Hgb Conc. 32.8 g/dL (33.0-37.0); Mean Corpuscular Volume 93.1 fL (80.0-94.0); Nucleated Red Blood Cells % 0 % (-); Platelet Count 154 10^3/uL (130-400); Red Cell Dist. Width 14.4 % (11.5-14.5)
[2024-10-15 14:04] LABS: ALT (SGPT) 35 U/L (0-50); AST (SGOT) 30 U/L (17-59); Albumin 4.6 g/dl (3.5-5.0); Alkaline Phosphatase 76 U/L (38-126); Blood Urea Nitrogen 14 mg/dl (9-20); Calcium 9.5 mg/dl (8.4-10.2); Carbon Dioxide 26 mmol/L (22-30); Chloride 104 mmol/L (98-107); Glucose 232 mg/dl (70-99); Potassium 4.1 mmol/L (3.5-5.1); Sodium 139 mmol/L (135-145); Total Protein 7.4 g/dl (6.3-8.2); eGFR > 60.00
== END ==
LOC: REG 10:43
PROVIDERS: ATTENDING PHYSICIAN Internal Medicine Hematology & Oncology; FAMILY PHYSICIAN Family Medicine
DX: C34.91 Malignant neoplasm of unspecified part of right bronchus or lung (principal); C79.51 Secondary malignant neoplasm of bone; J91.0 Malignant pleural effusion; D64.81 Anemia due to antineoplastic chemotherapy
CPT/HCPCS: 36415; 80053; 85025

== ENCOUNTER → 2024-10-17 16:32 | Outpatient (REF) | payer BC, SELFPAY ==
[2024-10-17 16:20] LABS: PSA, Total - Diagnostic 3.48 ng/ml (0.0-4.0)
== END ==
LOC: OIDL 16:32
PROVIDERS: ATTENDING PHYSICIAN Internal Medicine Hematology & Oncology
DX: C34.91 Malignant neoplasm of unspecified part of right bronchus or lung (principal); C79.51 Secondary malignant neoplasm of bone; J91.0 Malignant pleural effusion; D64.81 Anemia due to antineoplastic chemotherapy
CPT/HCPCS: 84153

== ENCOUNTER → 2024-11-05 10:09 | Outpatient (REF) | payer BC, SELFPAY ==
[2024-11-05 11:49] LABS: Hematocrit 35.6 % (39.0-52.0); Hemoglobin 11.8 g/dL (13.0-18.0); Mean Corp Hgb Conc. 33.1 g/dL (33.0-37.0); Mean Corpuscular Volume 92.5 fL (80.0-94.0); Nucleated Red Blood Cells % 0 % (-); Platelet Count 148 10^3/uL (130-400); Red Cell Dist. Width 14.4 % (11.5-14.5)
[2024-11-05 12:15] LABS: ALT (SGPT) 41 U/L (0-50); AST (SGOT) 32 U/L (17-59); Albumin 4.3 g/dl (3.5-5.0); Alkaline Phosphatase 70 U/L (38-126); Blood Urea Nitrogen 13 mg/dl (9-20); Calcium 8.9 mg/dl (8.4-10.2); Carbon Dioxide 30 mmol/L (22-30); Chloride 102 mmol/L (98-107); Glucose 205 mg/dl (70-99); Potassium 3.8 mmol/L (3.5-5.1); Sodium 139 mmol/L (135-145); Total Protein 6.9 g/dl (6.3-8.2); eGFR > 60.00
== END ==
LOC: REG 10:09
PROVIDERS: ATTENDING PHYSICIAN Internal Medicine Hematology & Oncology
DX: C34.91 Malignant neoplasm of unspecified part of right bronchus or lung (principal); C79.51 Secondary malignant neoplasm of bone; J91.0 Malignant pleural effusion; D64.81 Anemia due to antineoplastic chemotherapy
CPT/HCPCS: 36415; 80053; 85025

== ENCOUNTER → 2024-11-26 09:22 | Outpatient (REF) | payer BC, SELFPAY ==
[2024-11-26 09:56] LABS: Hematocrit 35.7 % (39.0-52.0); Hemoglobin 11.8 g/dL (13.0-18.0); Mean Corp Hgb Conc. 33.1 g/dL (33.0-37.0); Mean Corpuscular Volume 93.5 fL (80.0-94.0); Nucleated Red Blood Cells % 0 % (-); Platelet Count 137 10^3/uL (130-400); Red Cell Dist. Width 14.5 % (11.5-14.5)
[2024-11-26 10:35] LABS: ALT (SGPT) 67 U/L (0-50); AST (SGOT) 46 U/L (17-59); Albumin 4.5 g/dl (3.5-5.0); Alkaline Phosphatase 72 U/L (38-126); Blood Urea Nitrogen 11 mg/dl (9-20); Calcium 9.4 mg/dl (8.4-10.2); Carbon Dioxide 31 mmol/L (22-30); Chloride 102 mmol/L (98-107); Glucose 192 mg/dl (70-99); Potassium 4.0 mmol/L (3.5-5.1); Sodium 140 mmol/L (135-145); Total Protein 7.0 g/dl (6.3-8.2); eGFR > 60.00
== END ==
LOC: REG 09:22
PROVIDERS: ATTENDING PHYSICIAN Internal Medicine Hematology & Oncology; FAMILY PHYSICIAN Family Medicine
DX: C34.91 Malignant neoplasm of unspecified part of right bronchus or lung (principal); C79.51 Secondary malignant neoplasm of bone; J91.0 Malignant pleural effusion; D64.81 Anemia due to antineoplastic chemotherapy
CPT/HCPCS: 36415; 80053; 85025

== ENCOUNTER → 2024-12-06 08:52 | Outpatient (REF) | payer BC, SELFPAY ==
[2024-12-06 10:20] LABS: ALT (SGPT) 136 U/L (0-50); AST (SGOT) 71 U/L (17-59); Albumin 4.5 g/dl (3.5-5.0); Alkaline Phosphatase 86 U/L (38-126); Blood Urea Nitrogen 15 mg/dl (9-20); Calcium 9.3 mg/dl (8.4-10.2); Carbon Dioxide 31 mmol/L (22-30); Chloride 101 mmol/L (98-107); Glucose 157 mg/dl (70-99); Potassium 3.7 mmol/L (3.5-5.1); Sodium 139 mmol/L (135-145); Total Protein 7.3 g/dl (6.3-8.2); eGFR > 60.00
== END ==
LOC: REG 08:52
PROVIDERS: ATTENDING PHYSICIAN Internal Medicine Hematology & Oncology; FAMILY PHYSICIAN Family Medicine
DX: C34.91 Malignant neoplasm of unspecified part of right bronchus or lung (principal); C79.51 Secondary malignant neoplasm of bone; J91.0 Malignant pleural effusion; D64.81 Anemia due to antineoplastic chemotherapy
CPT/HCPCS: 36415; 80053

== ENCOUNTER → 2024-12-07 13:23 | Outpatient (REF) | payer BC, SELFPAY | LOC: RAD 13:23 | PROVIDERS: ATTENDING PHYSICIAN Internal Medicine Hematology & Oncology; FAMILY PHYSICIAN Family Medicine | DX: C34.91 Malignant neoplasm of unspecified part of right bronchus or lung (principal); C79.51 Secondary malignant neoplasm of bone; J91.0 Malignant pleural effusion; D64.81 Anemia due to antineoplastic chemotherapy | CPT/HCPCS: 76700 ==

== ENCOUNTER → 2024-12-17 11:18 | Outpatient (REF) | payer BC, SELFPAY ==
[2024-12-17 13:43] LABS: Hematocrit 32.3 % (39.0-52.0); Hemoglobin 10.4 g/dL (13.0-18.0); Mean Corp Hgb Conc. 32.2 g/dL (33.0-37.0); Mean Corpuscular Volume 92.6 fL (80.0-94.0); Nucleated Red Blood Cells % 0 % (-); Platelet Count 103 10^3/uL (130-400); Red Cell Dist. Width 14.5 % (11.5-14.5)
[2024-12-17 14:12] LABS: ALT (SGPT) 36 U/L (0-50); AST (SGOT) 40 U/L (17-59); Albumin 4.0 g/dl (3.5-5.0); Alkaline Phosphatase 61 U/L (38-126); Blood Urea Nitrogen 16 mg/dl (9-20); Calcium 8.8 mg/dl (8.4-10.2); Carbon Dioxide 26 mmol/L (22-30); Chloride 102 mmol/L (98-107); Glucose 240 mg/dl (70-99); Potassium 4.3 mmol/L (3.5-5.1); Sodium 136 mmol/L (135-145); Total Protein 6.8 g/dl (6.3-8.2); eGFR > 60.00
== END ==
LOC: REG 11:18
PROVIDERS: ATTENDING PHYSICIAN Internal Medicine Hematology & Oncology; FAMILY PHYSICIAN Family Medicine
DX: C34.91 Malignant neoplasm of unspecified part of right bronchus or lung (principal); C79.51 Secondary malignant neoplasm of bone; J91.0 Malignant pleural effusion; D64.81 Anemia due to antineoplastic chemotherapy
CPT/HCPCS: 36415; 80053; 85025

== ENCOUNTER → 2024-12-31 08:17 | Outpatient (REF) | payer BC, SELFPAY ==
[2024-12-31 07:46] LABS: Glucose 147 mg/dl (70-99)
== END ==
LOC: PET 08:17
PROVIDERS: ATTENDING PHYSICIAN Internal Medicine Hematology & Oncology
DX: C34.91 Malignant neoplasm of unspecified part of right bronchus or lung (principal); C79.51 Secondary malignant neoplasm of bone; J91.0 Malignant pleural effusion; D64.81 Anemia due to antineoplastic chemotherapy
CPT/HCPCS: 36415; 82947

== ENCOUNTER → 2025-01-07 10:39 | Outpatient (REF) | payer BC, SELFPAY ==
[2025-01-07 11:45] LABS: Hematocrit 33.6 % (39.0-52.0); Hemoglobin 11.2 g/dL (13.0-18.0); Mean Corp Hgb Conc. 33.3 g/dL (33.0-37.0); Mean Corpuscular Volume 92.8 fL (80.0-94.0); Nucleated Red Blood Cells % 0 % (-); Platelet Count 227 10^3/uL (130-400); Red Cell Dist. Width 15.0 % (11.5-14.5)
[2025-01-07 12:39] LABS: ALT (SGPT) 60 U/L (0-50); AST (SGOT) 34 U/L (17-59); Albumin 4.4 g/dl (3.5-5.0); Alkaline Phosphatase 99 U/L (38-126); Blood Urea Nitrogen 17 mg/dl (9-20); Calcium 9.3 mg/dl (8.4-10.2); Carbon Dioxide 29 mmol/L (22-30); Chloride 99 mmol/L (98-107); Glucose 250 mg/dl (70-99); Potassium 4.1 mmol/L (3.5-5.1); Sodium 135 mmol/L (135-145); Total Protein 7.2 g/dl (6.3-8.2); eGFR > 60.00
== END ==
LOC: REG 10:39
PROVIDERS: ATTENDING PHYSICIAN Internal Medicine Hematology & Oncology; FAMILY PHYSICIAN Family Medicine
DX: C34.91 Malignant neoplasm of unspecified part of right bronchus or lung (principal); C79.51 Secondary malignant neoplasm of bone; J91.0 Malignant pleural effusion; D64.81 Anemia due to antineoplastic chemotherapy
CPT/HCPCS: 36415; 80053; 85025

== ENCOUNTER → 2025-01-28 11:23 | Outpatient (REF) | payer BC, SELFPAY ==
[2025-01-28 12:13] LABS: Hematocrit 37.8 % (39.0-52.0); Hemoglobin 12.2 g/dL (13.0-18.0); Mean Corp Hgb Conc. 32.3 g/dL (33.0-37.0); Mean Corpuscular Volume 93.6 fL (80.0-94.0); Nucleated Red Blood Cells % 0 % (-); Platelet Count 172 10^3/uL (130-400); Red Cell Dist. Width 15.6 % (11.5-14.5)
[2025-01-28 12:48] LABS: ALT (SGPT) 38 U/L (0-50); AST (SGOT) 30 U/L (17-59); Albumin 4.6 g/dl (3.5-5.0); Alkaline Phosphatase 88 U/L (38-126); Blood Urea Nitrogen 16 mg/dl (9-20); Calcium 9.4 mg/dl (8.4-10.2); Carbon Dioxide 26 mmol/L (22-30); Chloride 103 mmol/L (98-107); Glucose 327 mg/dl (70-99); Potassium 3.9 mmol/L (3.5-5.1); Sodium 135 mmol/L (135-145); Total Protein 7.4 g/dl (6.3-8.2); eGFR > 60.00
== END ==
LOC: REG 11:23
PROVIDERS: ATTENDING PHYSICIAN Internal Medicine Hematology & Oncology; FAMILY PHYSICIAN Family Medicine
DX: C34.91 Malignant neoplasm of unspecified part of right bronchus or lung (principal); C79.51 Secondary malignant neoplasm of bone; J91.0 Malignant pleural effusion; D64.81 Anemia due to antineoplastic chemotherapy
CPT/HCPCS: 36415; 80053; 85025

== ENCOUNTER → 2025-02-18 12:51 | Outpatient (REF) | payer BC, SELFPAY ==
[2025-02-18 14:35] LABS: Hematocrit 39.2 % (39.0-52.0); Hemoglobin 12.9 g/dL (13.0-18.0); Mean Corp Hgb Conc. 32.9 g/dL (33.0-37.0); Mean Corpuscular Volume 95.4 fL (80.0-94.0); Nucleated Red Blood Cells % 0 % (-); Platelet Count 174 10^3/uL (130-400); Red Cell Dist. Width 14.9 % (11.5-14.5)
[2025-02-18 15:15] LABS: ALT (SGPT) 59 U/L (0-50); AST (SGOT) 44 U/L (17-59); Albumin 4.7 g/dl (3.5-5.0); Alkaline Phosphatase 77 U/L (38-126); Blood Urea Nitrogen 16 mg/dl (9-20); Calcium 9.6 mg/dl (8.4-10.2); Carbon Dioxide 29 mmol/L (22-30); Chloride 100 mmol/L (98-107); Glucose 259 mg/dl (70-99); Potassium 4.4 mmol/L (3.5-5.1); Sodium 138 mmol/L (135-145); Total Protein 7.3 g/dl (6.3-8.2); eGFR > 60.00
== END ==
LOC: REG 12:51
PROVIDERS: ATTENDING PHYSICIAN Internal Medicine Hematology & Oncology; FAMILY PHYSICIAN Family Medicine
DX: C34.91 Malignant neoplasm of unspecified part of right bronchus or lung (principal); C79.51 Secondary malignant neoplasm of bone; J91.0 Malignant pleural effusion; D64.81 Anemia due to antineoplastic chemotherapy
CPT/HCPCS: 36415; 80053; 85025

== ENCOUNTER → 2025-03-11 10:54 | Outpatient (REF) | payer BC, SELFPAY ==
[2025-03-11 12:14] LABS: Hematocrit 41.0 % (39.0-52.0); Hemoglobin 13.4 g/dL (13.0-18.0); Mean Corp Hgb Conc. 32.7 g/dL (33.0-37.0); Mean Corpuscular Volume 93.6 fL (80.0-94.0); Nucleated Red Blood Cells % 0 % (-); Platelet Count 164 10^3/uL (130-400); Red Cell Dist. Width 14.3 % (11.5-14.5)
[2025-03-11 13:02] LABS: ALT (SGPT) 39 U/L (0-50); AST (SGOT) 38 U/L (17-59); Albumin 4.6 g/dl (3.5-5.0); Alkaline Phosphatase 84 U/L (38-126); Blood Urea Nitrogen 17 mg/dl (9-20); Calcium 9.3 mg/dl (8.4-10.2); Carbon Dioxide 27 mmol/L (22-30); Chloride 103 mmol/L (98-107); Glucose 136 mg/dl (70-99); Potassium 4.1 mmol/L (3.5-5.1); Sodium 138 mmol/L (135-145); Total Protein 7.3 g/dl (6.3-8.2); eGFR > 60.00
== END ==
LOC: REG 10:54
PROVIDERS: ATTENDING PHYSICIAN Internal Medicine Hematology & Oncology
DX: C34.91 Malignant neoplasm of unspecified part of right bronchus or lung (principal); C79.51 Secondary malignant neoplasm of bone; J91.0 Malignant pleural effusion; D64.81 Anemia due to antineoplastic chemotherapy
CPT/HCPCS: 36415; 80053; 85025

== ENCOUNTER → 2025-04-01 10:09 | Outpatient (REF) | payer BC, SELFPAY ==
[2025-04-01 10:58] LABS: Hematocrit 38.9 % (39.0-52.0); Hemoglobin 13.1 g/dL (13.0-18.0); Mean Corp Hgb Conc. 33.7 g/dL (33.0-37.0); Mean Corpuscular Volume 94.2 fL (80.0-94.0); Nucleated Red Blood Cells % 0 % (-); Platelet Count 142 10^3/uL (130-400); Red Cell Dist. Width 14.0 % (11.5-14.5)
[2025-04-01 12:39] LABS: ALT (SGPT) 42 U/L (0-50); AST (SGOT) 37 U/L (17-59); Albumin 4.2 g/dl (3.5-5.0); Alkaline Phosphatase 100 U/L (38-126); Blood Urea Nitrogen 18 mg/dl (9-20); Calcium 8.6 mg/dl (8.4-10.2); Carbon Dioxide 25 mmol/L (22-30); Chloride 101 mmol/L (98-107); Glucose 227 mg/dl (70-99); Potassium 3.8 mmol/L (3.5-5.1); Sodium 135 mmol/L (135-145); Total Protein 6.7 g/dl (6.3-8.2); eGFR > 60.00
== END ==
LOC: REG 10:09
PROVIDERS: ATTENDING PHYSICIAN Internal Medicine Hematology & Oncology; FAMILY PHYSICIAN Family Medicine
DX: C34.91 Malignant neoplasm of unspecified part of right bronchus or lung (principal); C79.51 Secondary malignant neoplasm of bone; J91.0 Malignant pleural effusion; D64.81 Anemia due to antineoplastic chemotherapy
CPT/HCPCS: 36415; 80053; 85025